=== PATIENT | female | born 1970 | race African-American/Black ===

== ENCOUNTER → 2017-01-06 | Outpatient (CLI) | payer MEDICARE, MEDICAID | END | disposition home or self-care (01) | LOC: MAMMO 08:39 | PROVIDERS: ATTEND Specialist | DX: Z12.31 Encounter for screening mammogram for malignant neoplasm of breast (principal) | CPT/HCPCS: G0202 ==

== ENCOUNTER → 2018-02-13 | Outpatient (CLI) | payer MEDICARE, MEDICAID | END | disposition home or self-care (01) | LOC: MAMMO 08:51 | PROVIDERS: ATTEND Specialist | DX: Z12.31 Encounter for screening mammogram for malignant neoplasm of breast (principal); R92.1 Mammographic calcification found on diagnostic imaging of breast | CPT/HCPCS: 77067 ==

== ENCOUNTER → 2019-02-20 | Outpatient (CLI) | payer MEDICARE, MEDICAID | END | disposition home or self-care (01) | LOC: MAMMO 09:03 | PROVIDERS: ATTEND Specialist | DX: Z12.31 Encounter for screening mammogram for malignant neoplasm of breast (principal) | CPT/HCPCS: 77067 ==

== ENCOUNTER 2021-04-14 17:10 | Emergency (ER) | payer MEDICARE, MEDICAID ==
[~2021-04-14] VITALS: Ht 160 cm; Wt 75.0 kg
[2021-04-14 17:54] VITALS: BP 120/79
== END 2021-04-14 21:58 | disposition left against medical advice (07) ==
LOC: ER 17:10
DX: Z53.21 Procedure and treatment not carried out due to patient leaving prior to being seen by health care provider (principal); R56.9 Unspecified convulsions; F79 Unspecified intellectual disabilities

== ENCOUNTER 2021-06-21 19:33 | Inpatient (IN) | payer MEDICARE, MEDICAID ==
[~2021-06-21] VITALS: Ht 162.6 cm; Wt 66.2 kg
[2021-06-21] MEDS ORDERED: SODIUM CHLORIDE 0.9% 1,000 ML IV ONE (22:45)
[2021-06-22 01:18] LABS: BASOPHILS % 0.2 % (0.0-2.0); EOSINOPHILS % 0.5 % (0.0-5.0); LYMPHOCYTES % 40.4 % (20.0-50.0); MEAN CORPUSCULAR HEMOGLOBIN 27.4 pg (28.0-32.0); MEAN CORPUSCULAR VOLUME 84.4 fL (81.0-99.0); MEAN PLATELET VOLUME 7.7 fl (7.4-10.4); MONOCYTES % 7.5 % (2.0-8.0); NEUTROPHILS % 51.4 % (40.0-76.0); PLATELET 195 x1000/uL (130-400); RED BLOOD CELL COUNT 4.74 mill/uL (4.2-5.4); RED CELL DISTRIBUTION WIDTH 13.6 % (11.6-14.6)
[2021-06-22 01:30] LABS: CHLORIDE 105 mEq/L (98-107)
[2021-06-22 01:41] LABS: PHENOBARBITAL 10.5 ug/mL (15.0-40.0)
[2021-06-22 01:52] LABS: VALPROIC ACID < 3.0 ug/mL (50-100)
[2021-06-22 02:21] LABS: CLARITY URINE CLOUDY (CLEAR); COLOR URINE YELLOW (YELLOW); KETONES URINE TRACE (NEGATIVE); LEUKOCYTE ESTERASE URINE 2+ (NEGATIVE); NITRITE URINE POSITIVE (NEGATIVE); OCCULT BLOOD URINE NEGATIVE (NEGATIVE); PROTEIN URINE 2+ (NEGATIVE); SPECIFIC GRAVITY URINE 1.022 (1.005-1.030); UROBILINOGEN URINE 0.2 E.U./dL (0.2-1.0)
[2021-06-22] MEDS ORDERED: CEFTRIAXONE 1 G PREMIX 50 ML IV NR (02:30)
[2021-06-22] MEDS ORDERED: ACETAMINOPHEN 650MG SUPP PR PRN (02:45)
[2021-06-22] MEDS ORDERED: LEVETIRACETAM 1000MG PREMIX 100 ML IV NR (02:45)
[2021-06-22] MEDS ORDERED: CEFTRIAXONE 1 G PREMIX 50 ML IV SCH (03:00)
[2021-06-22] MEDS ORDERED: LEVETIRACETAM 500MG PREMIX 100 ML IV SCH (09:00)
[2021-06-22] MEDS ORDERED: LORAZEPAM 2MG/ML CPJ IV PRN (11:15)
[2021-06-22 14:00] VITALS: BP 127/82
[2021-06-22 14:34] VITALS: BP 127/82
[2021-06-22 16:00] VITALS: BP 121/88
[2021-06-22] MEDS ORDERED: SIMV10TA97 PO (16:03)
[2021-06-22] MEDS ORDERED: PHEN32.46 PO (16:03)
[2021-06-22] MEDS ORDERED: BENZ0.5T43 PO (16:03)
[2021-06-22] MEDS ORDERED: LAMO25TA3 PO (16:03)
[2021-06-22] MEDS ORDERED: CARB200C7 PO (16:03)
[2021-06-22] MEDS ORDERED: RISP1 PO (16:03)
[2021-06-22] MEDS ORDERED: LEVE1000 PO (16:03)
[2021-06-22] MEDS ORDERED: TIAG4TAB32 PO (16:03)
[2021-06-22] MEDS ORDERED: LACO200T2 PO (16:03)
[2021-06-22] MEDS ORDERED: ERGO50CA PO (16:03)
[2021-06-22] MEDS ORDERED: OMEP20CA14 PO (16:03)
[2021-06-22] MEDS ORDERED: DOCU-268 PO (16:03)
[2021-06-22] MEDS ORDERED: LAM1 PO (16:03)
[2021-06-22] MEDS ORDERED: FOLI-43 PO (16:03)
[2021-06-22 20:00] VITALS: BP 124/80
[2021-06-22] MEDS: BLOOD SUGAR DIAGNOSTIC STRIP TEST SCH (20:15)
[2021-06-22] MEDS: DEXT 5%/0.9% NACL 1,000 ML IV SCH (20:59)
[2021-06-22] MEDS: DEXTROSE 50% WATER 50ML SYRINGE IV PRN (21:19)
[2021-06-22] MEDS: VALPROATE SODIUM 500 MG in SODIUM CHLORIDE 0.9% 100 ML IV SCH (22:55)
[2021-06-23] VITALS: BP 114/82
[2021-06-23] MEDS: LEVETIRACETAM 500MG PREMIX 100 ML IV SCH ×3 (00:14→21:15)
[2021-06-23] MEDS: BLOOD SUGAR DIAGNOSTIC STRIP TEST SCH ×6 (00:15→20:15)
[2021-06-23] MEDS: DEXTROSE 50% WATER 50ML SYRINGE IV PRN (00:20)
[2021-06-23 04:00] VITALS: BP 120/77
[2021-06-23 07:13] LABS: CHLORIDE 112 mEq/L (98-107)
[2021-06-23 07:24] LABS: CARBAMAZEPINE 3.3 ug/mL (4-12)
[2021-06-23 07:35] LABS: BASOPHILS % 0.2 % (0.0-2.0); EOSINOPHILS % 0.7 % (0.0-5.0); HEMATOCRIT. 37.7 % (36.0-48.0); HEMOGLOBIN. 12.3 g/dL (12.0-16.0); LYMPHOCYTES % 46.7 % (20.0-50.0); MEAN CORPUSCULAR HEMOGLOBIN 27.1 pg (28.0-32.0); MEAN CORPUSCULAR VOLUME 83.3 fL (81.0-99.0); MEAN PLATELET VOLUME 8.4 fl (7.4-10.4); MONOCYTES % 8.1 % (2.0-8.0); NEUTROPHILS % 44.3 % (40.0-76.0); PLATELET 174 x1000/uL (130-400); RED BLOOD CELL COUNT 4.53 mill/uL (4.2-5.4); RED CELL DISTRIBUTION WIDTH 13.7 % (11.6-14.6)
[2021-06-23 08:00] VITALS: BP 112/78
[2021-06-23] MEDS: DEXT 5%/0.9% NACL 1,000 ML IV SCH ×2 (08:55→21:29)
[2021-06-23] MEDS: CEFTRIAXONE 1,000 MG in DEXTROSE 5% WATER 50 ML IV SCH (10:19)
[2021-06-23] MEDS: VALPROATE SODIUM 500 MG in SODIUM CHLORIDE 0.9% 100 ML IV SCH ×2 (10:19→21:15)
[2021-06-23 12:00] VITALS: BP 134/86
[2021-06-23 16:00] VITALS: BP 108/70
[2021-06-23 20:00] VITALS: BP 114/76
[2021-06-24] VITALS (8 sets, daily range): BP systolic 109–138; BP diastolic 68–82
[2021-06-24] MEDS: BLOOD SUGAR DIAGNOSTIC STRIP TEST SCH ×6 (01:00→20:15)
[2021-06-24] MEDS ORDERED: LEVETIRACETAM 500 MG in SODIUM CHLORIDE 0.9% 100 ML IV STA (01:01)
[2021-06-24] MEDS: LORAZEPAM 2MG/ML CPJ IV NR ×2 (01:09→02:08)
[2021-06-24] MEDS ORDERED: PHENOBARBITAL SODIUM 65MG/ML 1ML IV ONE (01:15)
[2021-06-24] MEDS ORDERED: LEVETIRACETAM 500MG PREMIX 100 ML IV NR (01:15)
[2021-06-24] MEDS ORDERED: PHENOBARBITAL SODIUM 65MG/ML 1ML IV SCH (01:15)
[2021-06-24] MEDS ORDERED: SODIUM CHLORIDE 0.9% IV NR (02:00)
[2021-06-24] MEDS ORDERED: PHENOBARBITAL IV NR (02:00)
[2021-06-24] MEDS: PHENYTOIN SODIUM 100MG/2ML VIAL IV SCH ×3 (06:32→21:48)
[2021-06-24] MEDS: CEFTRIAXONE 1,000 MG in DEXTROSE 5% WATER 50 ML IV SCH (06:32)
[2021-06-24] MEDS: VALPROATE SODIUM 500 MG in SODIUM CHLORIDE 0.9% 100 ML IV SCH ×2 (09:05→21:49)
[2021-06-24] MEDS: DEXT 5%/0.9% NACL 1,000 ML IV SCH (09:05)
[2021-06-24] MEDS: LEVETIRACETAM 1,000 MG in SODIUM CHLORIDE 0.9% 100 ML IV SCH ×2 (13:45→21:49)
[2021-06-24] MEDS: LORAZEPAM 2MG/ML CPJ IV PRN (21:48)
[2021-06-24] MEDS: DEXTROSE 50% WATER 50ML SYRINGE IV PRN (23:08)
[2021-06-25] VITALS: BP 117/78
[2021-06-25] MEDS: BLOOD SUGAR DIAGNOSTIC STRIP TEST SCH ×6 (00:15→20:52)
[2021-06-25] MEDS: LORAZEPAM 2MG/ML CPJ IV PRN (02:37)
[2021-06-25] MEDS: DEXT 5%/0.9% NACL 1,000 ML IV SCH ×2 (02:37→17:23)
[2021-06-25 04:00] VITALS: BP 117/76
[2021-06-25] MEDS: PHENYTOIN SODIUM 100MG/2ML VIAL IV SCH ×3 (07:06→22:38)
[2021-06-25 08:00] VITALS: BP 133/76
[2021-06-25] MEDS ORDERED: PHENOBARBITAL IV SCH (09:00)
[2021-06-25] MEDS ORDERED: SODIUM CHLORIDE 0.9% IV SCH (09:00)
[2021-06-25] MEDS: CEFTRIAXONE 1,000 MG in DEXTROSE 5% WATER 50 ML IV SCH (10:19)
[2021-06-25] MEDS: LEVETIRACETAM 1,250 MG in SODIUM CHLORIDE 0.9% 100 ML IV SCH ×2 (10:19→21:14)
[2021-06-25] MEDS: VALPROATE SODIUM 500 MG in SODIUM CHLORIDE 0.9% 100 ML IV SCH ×2 (10:25→20:54)
[2021-06-25 14:37] LABS: CHLORIDE 113 mEq/L (98-107)
[2021-06-25 15:08] LABS: BASOPHILS % 0.1 % (0.0-2.0); EOSINOPHILS % 0.2 % (0.0-5.0); HEMATOCRIT. 39.3 % (36.0-48.0); HEMOGLOBIN. 12.5 g/dL (12.0-16.0); LYMPHOCYTES % 23.6 % (20.0-50.0); MEAN CORPUSCULAR VOLUME 84.6 fL (81.0-99.0); MEAN PLATELET VOLUME 8.7 fl (7.4-10.4); MONOCYTES % 10.2 % (2.0-8.0); NEUTROPHILS % 65.9 % (40.0-76.0); PLATELET 161 x1000/uL (130-400); RED BLOOD CELL COUNT 4.65 mill/uL (4.2-5.4); RED CELL DISTRIBUTION WIDTH 13.6 % (11.6-14.6)
[2021-06-25 16:00] VITALS: BP 132/73
[2021-06-25] MEDS ORDERED: LAMOTRIGINE 100MG TABLET PO SCH (16:45)
[2021-06-25] MEDS: DEXTROSE 50% WATER 50ML SYRINGE IV PRN (17:24)
[2021-06-25 20:00] VITALS: BP 117/74
[2021-06-25] MEDS: LACOSAMIDE 100 MG TABLET PO SCH (20:54)
[2021-06-26] VITALS: BP 114/68
[2021-06-26 04:00] VITALS: BP 127/72
[2021-06-26] MEDS: BLOOD SUGAR DIAGNOSTIC STRIP TEST SCH ×6 (04:15→20:56)
[2021-06-26] MEDS: DEXT 5%/0.9% NACL 1,000 ML IV SCH ×2 (05:47→16:00)
[2021-06-26] MEDS: PHENYTOIN SODIUM 100MG/2ML VIAL IV SCH ×3 (05:47→20:55)
[2021-06-26] MEDS: CEFTRIAXONE 1,000 MG in DEXTROSE 5% WATER 50 ML IV SCH (06:03)
[2021-06-26 08:00] VITALS: BP 114/57
[2021-06-26] MEDS ORDERED: LAMOTRIGINE 25MG TABLET PO SCH (09:00)
[2021-06-26] MEDS: LEVETIRACETAM 1,250 MG in SODIUM CHLORIDE 0.9% 100 ML IV SCH ×2 (09:05→20:56)
[2021-06-26] MEDS: LACOSAMIDE 100 MG TABLET PO SCH ×2 (09:05→20:55)
[2021-06-26] MEDS: VALPROATE SODIUM 500 MG in SODIUM CHLORIDE 0.9% 100 ML IV SCH ×2 (09:06→20:56)
[2021-06-26] MEDS: LORAZEPAM 2MG/ML CPJ IV PRN (09:11)
[2021-06-26 12:00] VITALS: BP 113/53
[2021-06-26] MEDS: LAMOTRIGINE 100MG TABLET PO SCH ×2 (15:59→20:55)
[2021-06-26 16:00] VITALS: BP 104/74
[2021-06-26 20:00] VITALS: BP 116/80
[2021-06-27] VITALS: BP 118/73
[2021-06-27] MEDS: BLOOD SUGAR DIAGNOSTIC STRIP TEST SCH ×7 (01:13→23:50)
[2021-06-27 04:00] VITALS: BP 107/68
[2021-06-27] MEDS: PHENYTOIN SODIUM 100MG/2ML VIAL IV SCH ×3 (05:56→22:05)
[2021-06-27] MEDS: CEFTRIAXONE 1,000 MG in DEXTROSE 5% WATER 50 ML IV SCH (05:56)
[2021-06-27] MEDS: DEXT 5%/0.9% NACL 1,000 ML IV SCH ×2 (05:58→12:56)
[2021-06-27 08:00] VITALS: BP 115/67
[2021-06-27] MEDS: LACOSAMIDE 100 MG TABLET PO SCH ×2 (10:15→20:39)
[2021-06-27] MEDS: LAMOTRIGINE 25MG TABLET PO SCH (10:16)
[2021-06-27] MEDS: VALPROATE SODIUM 500 MG in SODIUM CHLORIDE 0.9% 100 ML IV SCH ×2 (10:16→20:40)
[2021-06-27] MEDS: LEVETIRACETAM 1,250 MG in SODIUM CHLORIDE 0.9% 100 ML IV SCH ×2 (10:16→22:05)
[2021-06-27 12:00] VITALS: BP 113/74
[2021-06-27 16:00] VITALS: BP 106/67
[2021-06-27 20:00] VITALS: BP 105/70
[2021-06-27] MEDS: LAMOTRIGINE 100MG TABLET PO SCH (20:40)
[2021-06-27] MEDS: DEXTROSE 50% WATER 50ML SYRINGE IV PRN (23:50)
[2021-06-28] VITALS: BP_SYST 110; BP_SYST 125; BP_DIAS 65; BP_DIAS 72
[2021-06-28] MEDS: DEXT 5%/0.9% NACL 1,000 ML IV SCH ×2 (01:10→13:45)
[2021-06-28 04:00] VITALS: BP 118/73
[2021-06-28] MEDS: BLOOD SUGAR DIAGNOSTIC STRIP TEST SCH ×6 (05:00→18:00)
[2021-06-28] MEDS: PHENYTOIN SODIUM 100MG/2ML VIAL IV SCH (06:18)
[2021-06-28 08:00] VITALS: BP 115/72
[2021-06-28] MEDS: LACOSAMIDE 100 MG TABLET PO SCH ×2 (10:49→20:39)
[2021-06-28] MEDS: LAMOTRIGINE 25MG TABLET PO SCH (10:51)
[2021-06-28] MEDS: LEVETIRACETAM 1,250 MG in SODIUM CHLORIDE 0.9% 100 ML IV SCH (10:51)
[2021-06-28 12:00] VITALS: BP 111/74
[2021-06-28] MEDS: PHENYTOIN SODIUM EXTENDED 100MG CAPSULE PO SCH ×2 (14:10→17:00)
[2021-06-28] MEDS: VALPROATE SODIUM 250MG/5ML UDC PO SCH ×2 (14:10→20:39)
[2021-06-28] MEDS ORDERED: KEPP500 PO (14:39)
[2021-06-28] MEDS ORDERED: LACO100T2 PO (14:39)
[2021-06-28] MEDS ORDERED: LAM1 PO (14:39)
[2021-06-28] MEDS ORDERED: PHEN100C4 PO (14:39)
[2021-06-28] MEDS ORDERED: VALP250S22 PO (14:39)
[2021-06-28] MEDS ORDERED: KEPP250 PO (14:39)
[2021-06-28 16:00] VITALS: BP 112/72
[2021-06-28 20:00] VITALS: BP_SYST 122; BP_SYST 124; BP_DIAS 77; BP_DIAS 78
[2021-06-28] MEDS: LEVETIRACETAM 500MG TABLET PO SCH (20:37)
[2021-06-28] MEDS: LEVETIRACETAM 250MG TABLET PO SCH (20:38)
[2021-06-28] MEDS: LAMOTRIGINE 100MG TABLET PO SCH (20:38)
[2021-06-29] VITALS: BP 124/77
[2021-06-29] MEDS: BLOOD SUGAR DIAGNOSTIC STRIP TEST SCH ×6 (00:48→20:15)
[2021-06-29] MEDS: DEXT 5%/0.9% NACL 1,000 ML IV SCH ×2 (02:15→13:53)
[2021-06-29 04:00] VITALS: BP 133/78
[2021-06-29] MEDS: VALPROATE SODIUM 250MG/5ML UDC PO SCH ×3 (05:47→20:55)
[2021-06-29] MEDS ORDERED: LORAZEPAM 2MG/ML CPJ IV PRN (07:20)
[2021-06-29 08:00] VITALS: BP 91/55
[2021-06-29] MEDS: PHENYTOIN SODIUM EXTENDED 100MG CAPSULE PO SCH ×2 (08:57→16:11)
[2021-06-29] MEDS: LEVETIRACETAM 500MG TABLET PO SCH ×2 (08:57→20:54)
[2021-06-29] MEDS: LAMOTRIGINE 100MG TABLET PO SCH ×2 (08:58→20:55)
[2021-06-29] MEDS: LEVETIRACETAM 250MG TABLET PO SCH ×2 (08:58→20:55)
[2021-06-29] MEDS: LACOSAMIDE 100 MG TABLET PO SCH ×2 (08:58→20:55)
[2021-06-29] MEDS ORDERED: VIMPAT 100 MG XX SCH (10:45)
[2021-06-29] MEDS ORDERED: LACOSAMIDE 100 MG TABLET PO SCH (11:30)
[2021-06-29 12:00] VITALS: BP 93/64
[2021-06-29 12:18] LABS: BASOPHILS % 0.6 % (0.0-2.0); EOSINOPHILS % 0.9 % (0.0-5.0); HEMATOCRIT. 37.2 % (36.0-48.0); HEMOGLOBIN. 12.2 g/dL (12.0-16.0); LYMPHOCYTES % 23.7 % (20.0-50.0); MEAN CORPUSCULAR HEMOGLOBIN 27.9 pg (28.0-32.0); MEAN CORPUSCULAR VOLUME 84.7 fL (81.0-99.0); MEAN PLATELET VOLUME 7.8 fl (7.4-10.4); MONOCYTES % 10.1 % (2.0-8.0); NEUTROPHILS % 64.7 % (40.0-76.0); PLATELET 198 x1000/uL (130-400); RED BLOOD CELL COUNT 4.39 mill/uL (4.2-5.4); RED CELL DISTRIBUTION WIDTH 13.7 % (11.6-14.6)
[2021-06-29 12:42] LABS: CHLORIDE 110 mEq/L (98-107)
[2021-06-29] MEDS ORDERED: POTASSIUM CHLORIDE INJ 40 MEQ in DEXT 5% WATER 250 ML IV ONE (15:00)
[2021-06-29 15:38] VITALS: BP 95/62
[2021-06-29] MEDS: KCL 20MEQ/100ML PREMIX 100 ML IV SCH ×2 (16:12→17:10)
[2021-06-29 20:00] VITALS: BP 95/59
[2021-06-30] MEDS: BLOOD SUGAR DIAGNOSTIC STRIP TEST SCH ×6 (00:15→20:15)
[2021-06-30] MEDS: DEXT 5%/0.9% NACL 1,000 ML IV SCH ×2 (03:15→16:53)
[2021-06-30 04:00] VITALS: BP 94/64
[2021-06-30] MEDS: VALPROATE SODIUM 250MG/5ML UDC PO SCH ×3 (06:32→20:37)
[2021-06-30] MEDS: LAMOTRIGINE 100MG TABLET PO SCH ×2 (09:07→20:37)
[2021-06-30] MEDS: PHENYTOIN SODIUM EXTENDED 100MG CAPSULE PO SCH ×2 (09:07→16:53)
[2021-06-30] MEDS: LEVETIRACETAM 250MG TABLET PO SCH ×2 (09:08→20:37)
[2021-06-30] MEDS: LACOSAMIDE 100 MG TABLET PO SCH ×2 (09:08→20:37)
[2021-06-30] MEDS: LEVETIRACETAM 500MG TABLET PO SCH ×2 (09:10→20:37)
[2021-06-30 16:00] VITALS: BP 137/80
[2021-06-30 20:00] VITALS: BP 122/89
[2021-07-01] MEDS: BLOOD SUGAR DIAGNOSTIC STRIP TEST SCH ×6 (01:03→21:10)
[2021-07-01 04:00] VITALS: BP 124/88
[2021-07-01] MEDS: VALPROATE SODIUM 250MG/5ML UDC PO SCH ×3 (04:41→20:53)
[2021-07-01] MEDS: DEXT 5%/0.9% NACL 1,000 ML IV SCH ×2 (04:41→16:45)
[2021-07-01 08:00] VITALS: BP 103/75
[2021-07-01 08:04] LABS: CHLORIDE 110 mEq/L (98-107)
[2021-07-01] MEDS: LEVETIRACETAM 250MG TABLET PO SCH ×2 (08:30→20:52)
[2021-07-01] MEDS: LEVETIRACETAM 500MG TABLET PO SCH ×2 (08:30→20:53)
[2021-07-01] MEDS: PHENYTOIN SODIUM EXTENDED 100MG CAPSULE PO SCH ×2 (08:30→18:44)
[2021-07-01] MEDS: LAMOTRIGINE 100MG TABLET PO SCH ×2 (08:30→20:53)
[2021-07-01] MEDS: LACOSAMIDE 100 MG TABLET PO SCH ×2 (08:31→20:53)
[2021-07-01] MEDS: LORAZEPAM 2MG/ML CPJ IV PRN (09:24)
[2021-07-01 12:00] VITALS: BP 105/70
[2021-07-01] MEDS ORDERED: LORAZEPAM 2MG/ML CPJ IM NR (12:15)
[2021-07-01 16:00] VITALS: BP 100/69
[2021-07-01 20:00] VITALS: BP 113/71
[2021-07-01] MEDS: DEXTROSE 50% WATER 50ML SYRINGE IV PRN (21:10)
[2021-07-02] VITALS: BP 101/66
[2021-07-02] MEDS: BLOOD SUGAR DIAGNOSTIC STRIP TEST SCH ×6 (00:19→23:33)
[2021-07-02 04:00] VITALS: BP 96/61
[2021-07-02] MEDS: DEXT 5%/0.9% NACL 1,000 ML IV SCH ×2 (05:39→21:24)
[2021-07-02] MEDS: VALPROATE SODIUM 250MG/5ML UDC PO SCH ×3 (05:39→21:23)
[2021-07-02 08:00] VITALS: BP 117/66
[2021-07-02] MEDS: PHENYTOIN SODIUM EXTENDED 100MG CAPSULE PO SCH ×2 (09:38→17:00)
[2021-07-02] MEDS: LEVETIRACETAM 500MG TABLET PO SCH ×2 (09:40→21:23)
[2021-07-02] MEDS: LAMOTRIGINE 100MG TABLET PO SCH ×2 (09:42→21:23)
[2021-07-02] MEDS: LACOSAMIDE 100 MG TABLET PO SCH ×2 (09:42→21:23)
[2021-07-02] MEDS: LEVETIRACETAM 250MG TABLET PO SCH ×2 (09:46→21:23)
[2021-07-02 12:00] VITALS: BP 115/64
[2021-07-02 16:00] VITALS: BP 116/68
[2021-07-02 20:00] VITALS: BP 95/65
[2021-07-03] VITALS: BP 108/76
[2021-07-03 04:00] VITALS: BP 109/67
[2021-07-03] MEDS: BLOOD SUGAR DIAGNOSTIC STRIP TEST SCH ×5 (04:05→20:15)
[2021-07-03] MEDS: DEXT 5%/0.9% NACL 1,000 ML IV SCH ×2 (05:30→16:44)
[2021-07-03] MEDS: VALPROATE SODIUM 250MG/5ML UDC PO SCH ×3 (05:30→21:59)
[2021-07-03 08:00] VITALS: BP 109/69
[2021-07-03] MEDS: LEVETIRACETAM 500MG TABLET PO SCH ×2 (09:10→22:01)
[2021-07-03] MEDS: PHENYTOIN SODIUM EXTENDED 100MG CAPSULE PO SCH ×2 (09:10→16:43)
[2021-07-03] MEDS: LEVETIRACETAM 250MG TABLET PO SCH ×2 (09:10→21:59)
[2021-07-03] MEDS: LAMOTRIGINE 100MG TABLET PO SCH ×2 (09:11→21:59)
[2021-07-03] MEDS: LACOSAMIDE 100 MG TABLET PO SCH ×2 (09:11→21:58)
[2021-07-03 12:00] VITALS: BP 106/68
[2021-07-03 16:00] VITALS: BP 112/67
[2021-07-03 20:00] VITALS: BP 108/63
[2021-07-04] VITALS (8 sets, daily range): BP systolic 93–124; BP diastolic 48–78
[2021-07-04] MEDS: BLOOD SUGAR DIAGNOSTIC STRIP TEST SCH ×6 (00:15→20:38)
[2021-07-04] MEDS: LORAZEPAM 2MG/ML CPJ IV PRN ×2 (04:38→10:50)
[2021-07-04] MEDS: DEXT 5%/0.9% NACL 1,000 ML IV SCH ×2 (05:10→20:37)
[2021-07-04] MEDS: VALPROATE SODIUM 250MG/5ML UDC PO SCH ×3 (05:54→21:49)
[2021-07-04] MEDS: PHENYTOIN SODIUM EXTENDED 100MG CAPSULE PO SCH ×2 (10:42→17:50)
[2021-07-04] MEDS: LEVETIRACETAM 500MG TABLET PO SCH ×2 (10:42→21:49)
[2021-07-04] MEDS: LEVETIRACETAM 250MG TABLET PO SCH ×2 (10:42→21:50)
[2021-07-04] MEDS: LAMOTRIGINE 100MG TABLET PO SCH ×2 (10:43→21:49)
[2021-07-04] MEDS: LACOSAMIDE 100 MG TABLET PO SCH ×2 (10:46→21:50)
[2021-07-05] VITALS: BP 102/69
[2021-07-05] MEDS: BLOOD SUGAR DIAGNOSTIC STRIP TEST SCH ×5 (03:59→20:15)
[2021-07-05 04:00] VITALS: BP 126/80
[2021-07-05] MEDS: VALPROATE SODIUM 250MG/5ML UDC PO SCH ×3 (05:49→22:20)
[2021-07-05 08:00] VITALS: BP 110/70
[2021-07-05] MEDS: LEVETIRACETAM 250MG TABLET PO SCH ×2 (09:37→22:21)
[2021-07-05] MEDS: LACOSAMIDE 100 MG TABLET PO SCH ×2 (09:38→22:20)
[2021-07-05] MEDS: LEVETIRACETAM 500MG TABLET PO SCH ×2 (09:38→22:20)
[2021-07-05] MEDS: LAMOTRIGINE 100MG TABLET PO SCH ×2 (09:38→22:20)
[2021-07-05] MEDS: PHENYTOIN SODIUM EXTENDED 100MG CAPSULE PO SCH ×2 (09:38→17:54)
[2021-07-05] MEDS: DEXT 5%/0.9% NACL 1,000 ML IV SCH ×2 (09:40→22:22)
[2021-07-05 12:00] VITALS: BP 118/75
[2021-07-05 16:00] VITALS: BP 106/72
[2021-07-06] VITALS: BP 118/68
[2021-07-06] MEDS: BLOOD SUGAR DIAGNOSTIC STRIP TEST SCH ×6 (00:15→20:22)
[2021-07-06 04:00] VITALS: BP 122/64
[2021-07-06] MEDS: VALPROATE SODIUM 250MG/5ML UDC PO SCH ×3 (06:46→22:07)
[2021-07-06] MEDS: DEXT 5%/0.9% NACL 1,000 ML IV SCH (09:15)
[2021-07-06] MEDS: LEVETIRACETAM 500MG TABLET PO SCH ×2 (11:39→20:22)
[2021-07-06] MEDS: LEVETIRACETAM 250MG TABLET PO SCH ×2 (11:39→20:24)
[2021-07-06] MEDS: PHENYTOIN SODIUM EXTENDED 100MG CAPSULE PO SCH ×2 (11:39→16:46)
[2021-07-06] MEDS: LACOSAMIDE 100 MG TABLET PO SCH ×2 (11:40→20:22)
[2021-07-06] MEDS: LAMOTRIGINE 100MG TABLET PO SCH ×2 (11:40→20:23)
[2021-07-06 12:00] VITALS: BP 98/54
[2021-07-06 16:00] VITALS: BP 109/68
[2021-07-06 20:00] VITALS: BP 100/68
[2021-07-07] VITALS: BP 106/72
[2021-07-07] MEDS ORDERED: METOCLOPRAMIDE HCL 10MG/2ML VIAL IV SCH
[2021-07-07] MEDS: BLOOD SUGAR DIAGNOSTIC STRIP TEST SCH ×5 (00:50→16:15)
[2021-07-07 04:00] VITALS: BP 108/68
[2021-07-07] MEDS: VALPROATE SODIUM 250MG/5ML UDC PO SCH ×2 (06:16→13:17)
[2021-07-07 12:00] VITALS: BP 119/77
[2021-07-07 12:13] VITALS: BP 119/77
[2021-07-07 13:10] VITALS: BP 119/77
[2021-07-07] MEDS: LAMOTRIGINE 100MG TABLET PO SCH (13:18)
[2021-07-07] MEDS: LACOSAMIDE 100 MG TABLET PO SCH (13:18)
[2021-07-07] MEDS: LEVETIRACETAM 500MG TABLET PO SCH (13:18)
[2021-07-07] MEDS: LEVETIRACETAM 250MG TABLET PO SCH (13:19)
[2021-07-07] MEDS: PHENYTOIN SODIUM EXTENDED 100MG CAPSULE PO SCH ×2 (13:19→17:01)
[2021-07-07 16:00] VITALS: BP 99/66
== END 2021-07-07 18:30 | disposition home or self-care (01) | DRG 101 ==
LOC: ER 19:33 → 7EST 06-22 02:26 → ENRESERV 06-22 10:55 → 5WST 06-24 15:58
PROVIDERS: ADMIT Internal Medicine; ATTEND Internal Medicine
PROC: 05HY33Z Insertion of Infusion Device into Upper Vein, Percutaneous Approach (ICD-10-PCS; 2021-06-22)
PROC: B54MZZA Ultrasonography of Right Upper Extremity Veins, Guidance (ICD-10-PCS; 2021-06-22)
PROC: 4A10X4Z Monitoring of Central Nervous Electrical Activity, External Approach (ICD-10-PCS; principal; 2021-06-23)
DX: G40.909 Epilepsy, unspecified, not intractable, without status epilepticus (principal); N39.0 Urinary tract infection, site not specified; F72 Severe intellectual disabilities; I10 Essential (primary) hypertension; E78.00 Pure hypercholesterolemia, unspecified; F79 Unspecified intellectual disabilities; D64.9 Anemia, unspecified; K21.9 Gastro-esophageal reflux disease without esophagitis; M19.90 Unspecified osteoarthritis, unspecified site; Z20.822 Contact with and (suspected) exposure to COVID-19; H54.7 Unspecified visual loss
CPT/HCPCS: 36415; 71045; 76937; 80048; 80053; 80076; 80156; 80165; 80184; 80185; 80339; 81003; 82542; 82962; 83735; 85025; 87077; 87186; 87426; 87635; 92610; 93005; 93971; 95816; 97162; 99285; C1725; C1893; J0696; J1165; J1953; J2060; J2560; J3480; J3490; J7030; J7040; J7042; J7050; J7060

== ENCOUNTER 2021-11-15 07:18 | Emergency (ER) | payer MEDICARE, MEDICAID ==
[~2021-11-15] VITALS: Ht 162.6 cm; Wt 64.0 kg
[~2021-11-15 07:18] MED LIST: BENZ0.5T43 PO; DOCU-268 PO; ERGO50CA PO; FOLI-43 PO; KEPP250 PO; KEPP500 PO; LAM1 PO; OMEP20CA14 PO; PHEN100C4 PO; RISP1 PO; SIMV10TA97 PO; VALP250S22 PO
[2021-11-15] MEDS ORDERED: HALOPERIDOL LACTATE 5MG/ML VIAL IM ONE (09:00)
[2021-11-15 09:39] LABS: BASOPHILS % 0.2 % (0.0-2.0); EOSINOPHILS % 0.7 % (0.0-5.0); HEMATOCRIT. 39.5 % (36.0-48.0); HEMOGLOBIN. 12.6 g/dL (12.0-16.0); LYMPHOCYTES % 26.2 % (20.0-50.0); MEAN CORPUSCULAR HEMOGLOBIN 27.4 pg (28.0-32.0); MEAN CORPUSCULAR VOLUME 85.5 fL (81.0-99.0); MEAN PLATELET VOLUME 8.4 fl (7.4-10.4); MONOCYTES % 4.9 % (2.0-8.0); PLATELET 154 x1000/uL (130-400); RED BLOOD CELL COUNT 4.62 mill/uL (4.2-5.4); RED CELL DISTRIBUTION WIDTH 15.7 % (11.6-14.6)
[2021-11-15 09:48] LABS: CHLORIDE 110 mEq/L (98-107)
[2021-11-15 09:56] LABS: ETHANOL BLOOD < 10 mg/dL
[2021-11-15 10:15] LABS: VALPROIC ACID < 3.0 ug/mL (50-100)
[2021-11-15 11:04] VITALS: BP 124/90
[2021-11-15 11:17] LABS: CLARITY URINE CLEAR (CLEAR); COLOR URINE YELLOW (YELLOW); KETONES URINE NEGATIVE (NEGATIVE); LEUKOCYTE ESTERASE URINE NEGATIVE (NEGATIVE); NITRITE URINE NEGATIVE (NEGATIVE); OCCULT BLOOD URINE NEGATIVE (NEGATIVE); PROTEIN URINE 1+ (NEGATIVE); SPECIFIC GRAVITY URINE 1.012 (1.005-1.030); UROBILINOGEN URINE 0.2 E.U./dL (0.2-1.0)
[2021-11-15 11:38] LABS: *AMPHETAMINES SCREEN URINE NEGATIVE (NEGATIVE); *BARBITURATES SCREEN URINE PRESUMTIVE POSITIVE (NEGATIVE); *BENZODIAZEPINES SCREEN URINE PRESUMTIVE POSITIVE (NEGATIVE); *COCAINE SCREEN URINE NEGATIVE (NEGATIVE); CANNABINOID URINE SCREEN NEGATIVE (NEGATIVE); METHADONE URINE SCREEN NEGATIVE (NEGATIVE); OPIATES URINE SCREEN NEGATIVE (NEGATIVE); PHENCYCLIDINE URINE SCREEN NEGATIVE (NEGATIVE)
== END 2021-11-15 14:05 | disposition home or self-care (01) ==
LOC: ER 07:28
DX: G40.909 Epilepsy, unspecified, not intractable, without status epilepticus (principal); K21.9 Gastro-esophageal reflux disease without esophagitis; E78.00 Pure hypercholesterolemia, unspecified; I10 Essential (primary) hypertension; M19.90 Unspecified osteoarthritis, unspecified site
CPT/HCPCS: 36415; 80053; 80156; 80165; 80185; 80305; 80320; 81003; 85025; 99283; G0480

== ENCOUNTER 2022-03-03 18:59 | Inpatient (IN) | payer MEDICARE, MEDICAID ==
[~2022-03-03] VITALS: Ht 165.1 cm; Wt 79.8 kg
[2022-03-03] MEDS ORDERED: LEVETIRACETAM 1000MG PREMIX 100 ML IV ONE (19:45)
[2022-03-03 20:58] LABS: BASOPHILS % 0.2 % (0.0-2.0); HEMATOCRIT. 42.1 % (36.0-48.0); HEMOGLOBIN. 13.4 g/dL (12.0-16.0); LYMPHOCYTES % 42.7 % (20.0-50.0); MEAN CORPUSCULAR HEMOGLOBIN 27.7 pg (28.0-32.0); MEAN CORPUSCULAR VOLUME 87.3 fL (81.0-99.0); MEAN PLATELET VOLUME 8.9 fl (7.4-10.4); MONOCYTES % 7.5 % (2.0-8.0); NEUTROPHILS % 49.6 % (40.0-76.0); PLATELET 196 x1000/uL (130-400); RED BLOOD CELL COUNT 4.82 mill/uL (4.2-5.4); RED CELL DISTRIBUTION WIDTH 14.8 % (11.6-14.6)
[2022-03-03 21:01] LABS: CHLORIDE 108 mEq/L (98-107)
[2022-03-03] MEDS ORDERED: ONDANSETRON HCL 4MG/2ML INJ IV PRN (22:45)
[2022-03-03] MEDS ORDERED: MAGNESIUM/ALUMINUM HYDROXIDE/SIMETHICONE 30ML UDC PO PRN (22:45)
[2022-03-03] MEDS ORDERED: NITROGLYCERIN 0.4MG TABLET SL SL PRN (22:45)
[2022-03-03] MEDS ORDERED: ACETAMINOPHEN 325MG TABLET PO PRN ×2 (22:45)
[2022-03-03] MEDS ORDERED: GUAIFENESIN 200MG/10ML SUGAR FREE UDC PO PRN (22:45)
[2022-03-03] MEDS ORDERED: KETOROLAC 15MG/ML VIAL IV PRN (22:45)
[2022-03-03] MEDS ORDERED: CLONIDINE 0.1MG TABLET PO PRN (22:45)
[2022-03-03] MEDS ORDERED: NA PHOS,M-B/NA PHOS,DI-BA ENEMA 118ML PR PRN (22:45)
[2022-03-03] MEDS ORDERED: IPRATROPIUM/ALBUTEROL 0.5-3(2.5)MG/3ML NEB NEB PRN (22:45)
[2022-03-03] MEDS ORDERED: DOCUSATE SODIUM 100MG CAPSULE PO PRN (22:45)
[2022-03-03] MEDS ORDERED: DIAZEPAM 5 MG/ML 2ML CPJ IV PRN (22:45)
[2022-03-03] MEDS ORDERED: ZOLPIDEM TARTRATE 5MG TABLET PO PRN (22:45)
[2022-03-04 02:08] LABS: VITAMIN B12 SERUM 938 pg/mL (211-911)
[2022-03-04 02:17] LABS: FOLIC ACID (FOLATE) SERUM > 20.00 ng/mL (>5.38)
[2022-03-04 03:24] VITALS: BP 127/85
[2022-03-04 04:00] VITALS: BP 120/70
[2022-03-04] MEDS: VALPROIC ACID 250MG CAPSULE PO SCH ×3 (05:43→21:29)
[2022-03-04 08:00] VITALS: BP 128/82
[2022-03-04] MEDS ORDERED: LEVETIRACETAM 500MG PREMIX 100 ML IV SCH (09:00)
[2022-03-04] MEDS: ASPIRIN 325MG EC TABLET PO SCH (09:00)
[2022-03-04] MEDS: ENOXAPARIN 40MG/0.4ML SYR SUBCUT SCH (10:51)
[2022-03-04] MEDS: PHENYTOIN SODIUM 100MG/2ML VIAL IV SCH ×3 (10:51→18:20)
[2022-03-04] MEDS: FAMOTIDINE 20MG TABLET PO SCH ×2 (10:52→21:29)
[2022-03-04] MEDS: LAMOTRIGINE 100MG TABLET PO SCH ×2 (10:52→21:29)
[2022-03-04 11:18] LABS: BASOPHILS % 0.2 % (0.0-2.0); HEMATOCRIT. 37.7 % (36.0-48.0); HEMOGLOBIN. 12.2 g/dL (12.0-16.0); LYMPHOCYTES % 39.9 % (20.0-50.0); MEAN CORPUSCULAR HEMOGLOBIN 27.9 pg (28.0-32.0); MEAN CORPUSCULAR VOLUME 86.3 fL (81.0-99.0); MEAN PLATELET VOLUME 8.8 fl (7.4-10.4); NEUTROPHILS % 53.9 % (40.0-76.0); PLATELET 180 x1000/uL (130-400); RED BLOOD CELL COUNT 4.37 mill/uL (4.2-5.4); RED CELL DISTRIBUTION WIDTH 14.4 % (11.6-14.6)
[2022-03-04 11:20] LABS: CHLORIDE 112 mEq/L (98-107)
[2022-03-04 11:27] LABS: CREATINE KINASE 105 IU/L (26-192); PHOSPHORUS 3.4 mg/dL (2.5-4.9)
[2022-03-04 12:00] VITALS: BP 130/78
[2022-03-04] MEDS: LEVETIRACETAM 500MG PREMIX 100 ML IV SCH ×2 (13:35→21:29)
[2022-03-04 16:00] VITALS: BP 122/76
[2022-03-04 20:00] VITALS: BP 104/72
[2022-03-05] VITALS: BP 124/85
[2022-03-05] MEDS: PHENYTOIN SODIUM 100MG/2ML VIAL IV SCH ×3 (01:17→17:45)
[2022-03-05 04:00] VITALS: BP 120/87
[2022-03-05] MEDS: VALPROIC ACID 250MG CAPSULE PO SCH ×3 (05:17→21:44)
[2022-03-05 08:00] VITALS: BP 113/70
[2022-03-05] MEDS: FAMOTIDINE 20MG TABLET PO SCH ×2 (08:27→21:44)
[2022-03-05] MEDS: LEVETIRACETAM 500MG PREMIX 100 ML IV SCH ×2 (08:27→21:46)
[2022-03-05] MEDS: ENOXAPARIN 40MG/0.4ML SYR SUBCUT SCH (08:27)
[2022-03-05] MEDS: LAMOTRIGINE 100MG TABLET PO SCH ×2 (08:27→21:44)
[2022-03-05] MEDS: ASPIRIN 325MG EC TABLET PO SCH (08:27)
[2022-03-05 12:00] VITALS: BP 109/65
[2022-03-05 15:37] VITALS: BP 98/66
[2022-03-05 17:18] LABS: CHLORIDE 110 mEq/L (98-107)
[2022-03-05 18:14] LABS: BASOPHILS % 0.1 % (0.0-2.0); HEMATOCRIT. 37.3 % (36.0-48.0); HEMOGLOBIN. 12.4 g/dL (12.0-16.0); LYMPHOCYTES % 49.3 % (20.0-50.0); MEAN CORPUSCULAR HEMOGLOBIN 28.1 pg (28.0-32.0); MEAN CORPUSCULAR VOLUME 84.6 fL (81.0-99.0); MEAN PLATELET VOLUME 9.3 fl (7.4-10.4); NEUTROPHILS % 41.6 % (40.0-76.0); PLATELET 183 x1000/uL (130-400); RED BLOOD CELL COUNT 4.41 mill/uL (4.2-5.4); RED CELL DISTRIBUTION WIDTH 14.4 % (11.6-14.6)
[2022-03-05 20:00] VITALS: BP 98/69
[2022-03-06] VITALS: BP 103/73
[2022-03-06] MEDS: PHENYTOIN SODIUM 100MG/2ML VIAL IV SCH (02:00)
[2022-03-06] MEDS: VALPROIC ACID 250MG CAPSULE PO SCH ×3 (05:35→20:43)
[2022-03-06 07:56] VITALS: BP 99/62
[2022-03-06] MEDS: ASPIRIN 325MG EC TABLET PO SCH (08:52)
[2022-03-06] MEDS: LAMOTRIGINE 100MG TABLET PO SCH ×2 (08:52→20:41)
[2022-03-06] MEDS: FAMOTIDINE 20MG TABLET PO SCH ×2 (08:52→20:42)
[2022-03-06] MEDS: LEVETIRACETAM 500MG PREMIX 100 ML IV SCH (08:52)
[2022-03-06] MEDS: ENOXAPARIN 40MG/0.4ML SYR SUBCUT SCH (08:53)
[2022-03-06] MEDS ORDERED: PHENYTOIN SODIUM EXTENDED 100MG CAPSULE PO SCH (10:00)
[2022-03-06 12:00] VITALS: BP 105/68
[2022-03-06 16:02] VITALS: BP 105/70
[2022-03-06] MEDS: PHENYTOIN SODIUM EXTENDED 100MG CAPSULE PO SCH (16:29)
[2022-03-06 20:00] VITALS: BP 138/88
[2022-03-06] MEDS: LEVETIRACETAM 500MG TABLET PO SCH (20:41)
[2022-03-07] VITALS (7 sets, daily range): BP systolic 101–121; BP diastolic 64–92
[2022-03-07] MEDS: VALPROIC ACID 250MG CAPSULE PO SCH ×2 (06:22→13:22)
[2022-03-07] MEDS: LEVETIRACETAM 500MG TABLET PO SCH (09:03)
[2022-03-07] MEDS: FAMOTIDINE 20MG TABLET PO SCH ×2 (09:03→21:31)
[2022-03-07] MEDS: PHENYTOIN SODIUM EXTENDED 100MG CAPSULE PO SCH ×3 (09:03→17:02)
[2022-03-07] MEDS: LAMOTRIGINE 100MG TABLET PO SCH ×2 (09:03→21:31)
[2022-03-07] MEDS: ASPIRIN 325MG EC TABLET PO SCH (09:03)
[2022-03-07] MEDS: ENOXAPARIN 40MG/0.4ML SYR SUBCUT SCH (09:04)
[2022-03-07] MEDS ORDERED: ZONISAMIDE 100MG CAPSULE PO SCH (21:15)
[2022-03-07] MEDS ORDERED: NON FORMULARY PATIENT HOME MED XX SCH (21:15)
[2022-03-08] MEDS ORDERED: CARBAMAZEPINE 100MG TABLET CHEW PO SCH (07:40)
[2022-03-08] MEDS ORDERED: LEVETIRACETAM 500MG TABLET PO SCH (09:00)
[2022-03-08] MEDS ORDERED: LACOSAMIDE 100 MG TABLET PO SCH (09:00)
== END 2022-03-07 23:33 | DRG 100 ==
LOC: ER 18:59 → MICUSO 22:36 → SUPCPDRO 22:45 → 8WST 03-04 01:38
PROVIDERS: ADMIT Internal Medicine; ATTEND Internal Medicine
DX: G40.909 Epilepsy, unspecified, not intractable, without status epilepticus (principal); G82.50 Quadriplegia, unspecified; G92.8 Other toxic encephalopathy; E78.00 Pure hypercholesterolemia, unspecified; D63.8 Anemia in other chronic diseases classified elsewhere; I10 Essential (primary) hypertension; K21.9 Gastro-esophageal reflux disease without esophagitis; M19.90 Unspecified osteoarthritis, unspecified site; F79 Unspecified intellectual disabilities; R26.2 Difficulty in walking, not elsewhere classified; R53.81 Other malaise; Z91.19 Patient's noncompliance with other medical treatment and regimen; Z79.899 Other long term (current) drug therapy
CPT/HCPCS: 36415; 71045; 80048; 80053; 80061; 80185; 82550; 82607; 82746; 82962; 83036; 83540; 83550; 83735; 84100; 84443; 85025; 92523; 92610; 93970; 97116; 97162; 97166; 97530; 97535; 99291; J1165; J1650; J1953

== ENCOUNTER 2022-03-29 05:35 | Emergency (ER) | payer MEDICARE, MEDICAID ==
[~2022-03-29] VITALS: Ht 172.7 cm; Wt 82.0 kg
[2022-03-29] MEDS ORDERED: LEVETIRACETAM 500MG PREMIX 100 ML IV ONE (06:30)
[2022-03-29 14:22] LABS: CLARITY URINE CLEAR (CLEAR); COLOR URINE YELLOW (YELLOW); KETONES URINE NEGATIVE (NEGATIVE); LEUKOCYTE ESTERASE URINE NEGATIVE (NEGATIVE); NITRITE URINE NEGATIVE (NEGATIVE); OCCULT BLOOD URINE NEGATIVE (NEGATIVE); PROTEIN URINE NEGATIVE (NEGATIVE); SPECIFIC GRAVITY URINE 1.003 (1.005-1.030); UROBILINOGEN URINE 0.2 E.U./dL (0.2-1.0)
[2022-03-29 17:57] VITALS: BP 125/86
== END 2022-03-29 18:14 | disposition home or self-care (01) ==
LOC: ER 05:54
DX: R56.9 Unspecified convulsions (principal); I10 Essential (primary) hypertension; E78.00 Pure hypercholesterolemia, unspecified; Z91.14 Patient's other noncompliance with medication regimen; Z20.822 Contact with and (suspected) exposure to COVID-19; Z79.899 Other long term (current) drug therapy; Z98.890 Other specified postprocedural states
CPT/HCPCS: 71045; 81003; 87426; 99285; C9803; J1953

== ENCOUNTER 2022-04-21 06:16 | Inpatient (IN) | payer MEDICARE, MEDICAID ==
[~2022-04-21] VITALS: Ht 160 cm; Wt 91.6 kg
[2022-04-21 07:09] LABS: BASOPHILS % 0.2 % (0.0-2.0); HEMATOCRIT. 36.3 % (36.0-48.0); LYMPHOCYTES % 49.1 % (20.0-50.0); MEAN CORPUSCULAR HEMOGLOBIN 27.6 pg (28.0-32.0); MEAN CORPUSCULAR VOLUME 83.5 fL (81.0-99.0); MONOCYTES % 5.9 % (2.0-8.0); NEUTROPHILS % 44.8 % (40.0-76.0); PLATELET 150 x1000/uL (130-400); RED BLOOD CELL COUNT 4.35 mill/uL (4.2-5.4); RED CELL DISTRIBUTION WIDTH 14.2 % (11.6-14.6)
[2022-04-21] MEDS ORDERED: LEVETIRACETAM 1000MG PREMIX 100 ML IV ONE (07:30)
[2022-04-21 07:34] LABS: CHLORIDE 107 mEq/L (98-107)
[2022-04-21 07:42] LABS: ETHANOL BLOOD < 10 mg/dL
[2022-04-21] MEDS ORDERED: ACETAMINOPHEN 325MG TABLET PO PRN ×2 (09:45)
[2022-04-21] MEDS ORDERED: ZOLPIDEM TARTRATE 5MG TABLET PO PRN (09:45)
[2022-04-21] MEDS ORDERED: NITROGLYCERIN 0.4MG TABLET SL SL PRN (09:45)
[2022-04-21] MEDS ORDERED: GUAIFENESIN 200MG/10ML SUGAR FREE UDC PO PRN (09:45)
[2022-04-21] MEDS ORDERED: IPRATROPIUM/ALBUTEROL 0.5-3(2.5)MG/3ML NEB NEB PRN (09:45)
[2022-04-21] MEDS ORDERED: MAGNESIUM/ALUMINUM HYDROXIDE/SIMETHICONE 30ML UDC PO PRN (09:45)
[2022-04-21] MEDS ORDERED: CLONIDINE 0.1MG TABLET PO PRN (09:45)
[2022-04-21 10:31] LABS: T4 FREE 1.02 ng/dL (0.76-1.46)
[2022-04-21 10:44] LABS: VITAMIN B12 SERUM 877 pg/mL (211-911)
[2022-04-21] MEDS ORDERED: PHENYTOIN SODIUM 1,000 MG in SODIUM CHLORIDE 0.9% 100 ML IV NR (11:00)
[2022-04-21] MEDS: PHENYTOIN SODIUM 100MG/2ML VIAL IV SCH ×2 (11:00→21:20)
[2022-04-21] MEDS: ENOXAPARIN 40MG/0.4ML SYR SUBCUT SCH (11:22)
[2022-04-21 16:00] VITALS: BP 121/44
[2022-04-21] MEDS: DIVALPROEX SODIUM 250MG DR TABLET PO SCH ×2 (16:38→23:38)
[2022-04-21 18:16] VITALS: BP 100/71
[2022-04-21 20:33] VITALS: BP 113/72
[2022-04-21] MEDS: LEVETIRACETAM 500MG TABLET PO SCH (21:19)
[2022-04-21] MEDS: LAMOTRIGINE 100MG TABLET PO SCH (21:20)
[2022-04-21] MEDS: FAMOTIDINE 20MG TABLET PO SCH (21:20)
[2022-04-22] VITALS (37 sets, daily range): BP systolic 103–163; BP diastolic 63–98
[2022-04-22] MEDS ORDERED: DEXTROSE 50% WATER 50ML SYRINGE IV ONE ×2 (02:11→05:59)
[2022-04-22] MEDS ORDERED: DEXTROSE 50% WATER 50ML SYRINGE IV NR (03:00)
[2022-04-22] MEDS: LORAZEPAM 2MG/ML CPJ IV PRN ×3 (03:03→22:48)
[2022-04-22] MEDS: DIVALPROEX SODIUM 250MG DR TABLET PO SCH ×3 (06:00→21:51)
[2022-04-22] MEDS: PHENYTOIN SODIUM 100MG/2ML VIAL IV SCH ×3 (06:08→21:51)
[2022-04-22] MEDS: DEXTROSE 50% WATER 50ML SYRINGE IV PRN (06:12)
[2022-04-22] MEDS ORDERED: LORAZEPAM 2MG/ML CPJ IV PRN (06:30)
[2022-04-22 07:48] LABS: BASOPHILS % 0.1 % (0.0-2.0); HEMATOCRIT. 41.4 % (36.0-48.0); HEMOGLOBIN. 13.4 g/dL (12.0-16.0); MEAN CORPUSCULAR HEMOGLOBIN 28.1 pg (28.0-32.0); MEAN CORPUSCULAR VOLUME 86.6 fL (81.0-99.0); MONOCYTES % 4.3 % (2.0-8.0); NEUTROPHILS % 76.6 % (40.0-76.0); RED BLOOD CELL COUNT 4.78 mill/uL (4.2-5.4); RED CELL DISTRIBUTION WIDTH 14.5 % (11.6-14.6)
[2022-04-22 08:09] LABS: CHLORIDE 108 mEq/L (98-107)
[2022-04-22 08:25] LABS: CREATINE KINASE 436 IU/L (26-192)
[2022-04-22] MEDS: ASPIRIN 325MG EC TABLET PO SCH (09:00)
[2022-04-22] MEDS: LAMOTRIGINE 100MG TABLET PO SCH ×2 (09:00→20:57)
[2022-04-22] MEDS: LEVETIRACETAM 500MG TABLET PO SCH (09:00)
[2022-04-22] MEDS: FAMOTIDINE 20MG TABLET PO SCH ×2 (09:38→20:57)
[2022-04-22] MEDS: DEXT 5%/0.9% NACL 1,000 ML IV SCH ×2 (10:45→20:59)
[2022-04-22] MEDS: ENOXAPARIN 40MG/0.4ML SYR SUBCUT SCH (11:00)
[2022-04-22] MEDS ORDERED: LORAZEPAM 2MG/ML CPJ IV NR (11:30)
[2022-04-22] MEDS: LEVETIRACETAM 1,500 MG in SODIUM CHLORIDE 0.9% 100 ML IV SCH ×2 (11:31→20:58)
[2022-04-22] MEDS ORDERED: PHENOBARBITAL SODIUM 65MG/ML 1ML IV NR (11:43)
[2022-04-22] MEDS ORDERED: PROPOFOL 10MG/ML 100ML 100 ML IV PRN (12:15)
[2022-04-22 12:30] LABS: BG BASE EXCESS -0.7 mmol/L (-2.0-2.0); BG CARBOXYHEMOGLOBIN 0.3 % (0.5-1.5); BG DEOXYHEMOGLOBIN 0.6 % (0.0-5.0); BG HCO3 ACT 24.5 mmol/L (22.0-26.0); BG METHEMOGLOBIN 0.4 % (0.0-1.5); BG OXYGEN SATURATION 99.4 % (92.0-98.5); BG OXYHEMOGLOBIN 98.7 % (94.0-97.0); BG PCO2 42.2 mmHg (35.0-45.0); BG PH 7.381 (7.350-7.450); BG PO2 318.4 mmHg (75.0-100.0); BG SAMPLE SITE RIGHT BRACHIAL; BG TOTAL HEMOGLOBIN 12.6 g/dL (12.0-18.0); BG VENT MODE VENT - AC
[2022-04-22] MEDS ORDERED: NOREPINEPHRINE 8 MG in DEXT 5% WATER 242 ML IV PRN ×2 (13:00→14:00)
[2022-04-22] MEDS ORDERED: SODIUM CHLORIDE 0.9% 1,000 ML IV ONE (13:15)
[2022-04-22] MEDS: PIPERACILLIN/TAZOBACTAM 3.375 G in DEXTROSE 5% WATER 50 ML IV SCH ×2 (14:48→21:52)
[2022-04-22] MEDS: MIDAZOLAM HCL 100 MG in SODIUM CHLORIDE 0.9% 80 ML IV PRN (15:06)
[2022-04-22] MEDS ORDERED: DEXTROSE 50% WATER 50ML SYRINGE IV PRN (17:30)
[2022-04-22] MEDS: BLOOD SUGAR DIAGNOSTIC STRIP TEST SCH ×2 (17:32→20:59)
[2022-04-22] MEDS: ONDANSETRON HCL 4MG/2ML INJ IV PRN (22:48)
[2022-04-23] VITALS (82 sets, daily range): BP systolic 87–120; BP diastolic 44–86
[2022-04-23] MEDS: LORAZEPAM 2MG/ML CPJ IV PRN ×3 (02:45→14:33)
[2022-04-23] MEDS: ONDANSETRON HCL 4MG/2ML INJ IV PRN (02:55)
[2022-04-23] MEDS: PHENYTOIN SODIUM 100MG/2ML VIAL IV SCH ×2 (05:46→14:33)
[2022-04-23] MEDS: DIVALPROEX SODIUM 250MG DR TABLET PO SCH ×2 (05:46→14:33)
[2022-04-23] MEDS: PIPERACILLIN/TAZOBACTAM 3.375 G in DEXTROSE 5% WATER 50 ML IV SCH ×3 (05:58→23:37)
[2022-04-23] MEDS: DEXT 5%/0.9% NACL 1,000 ML IV SCH ×2 (06:20→16:45)
[2022-04-23 06:38] LABS: HEMATOCRIT. 31.8 % (36.0-48.0); HEMOGLOBIN. 10.6 g/dL (12.0-16.0); LYMPHOCYTES % 22.6 % (20.0-50.0); MEAN CORPUSCULAR HEMOGLOBIN 28.2 pg (28.0-32.0); MEAN CORPUSCULAR VOLUME 84.1 fL (81.0-99.0); MEAN PLATELET VOLUME 8.7 fl (7.4-10.4); MONOCYTES % 8.2 % (2.0-8.0); NEUTROPHILS % 69.2 % (40.0-76.0); PLATELET 115 x1000/uL (130-400); RED BLOOD CELL COUNT 3.77 mill/uL (4.2-5.4); RED CELL DISTRIBUTION WIDTH 14.4 % (11.6-14.6)
[2022-04-23 06:53] LABS: CHLORIDE 109 mEq/L (98-107)
[2022-04-23 07:08] LABS: PHOSPHORUS 2.8 mg/dL (2.5-4.9)
[2022-04-23] MEDS: BLOOD SUGAR DIAGNOSTIC STRIP TEST SCH ×4 (07:33→21:16)
[2022-04-23] MEDS: MAGNESIUM 2 G PREMIX 50 ML IV SCH ×2 (08:37→18:47)
[2022-04-23] MEDS: LAMOTRIGINE 100MG TABLET PO SCH ×2 (08:38→21:12)
[2022-04-23] MEDS: ASPIRIN 325MG EC TABLET PO SCH (08:38)
[2022-04-23] MEDS: LEVETIRACETAM 1,500 MG in SODIUM CHLORIDE 0.9% 100 ML IV SCH ×2 (08:38→21:12)
[2022-04-23] MEDS: FAMOTIDINE 20MG TABLET PO SCH ×2 (08:38→21:12)
[2022-04-23] MEDS: PHENOBARBITAL SODIUM 130MG/ML 1ML IV SCH (08:54)
[2022-04-23 09:19] LABS: BG BASE EXCESS -1.4 mmol/L (-2.0-2.0); BG CARBOXYHEMOGLOBIN 0.3 % (0.5-1.5); BG DEOXYHEMOGLOBIN 1.7 % (0.0-5.0); BG FRACTION INSPIRED OXYGEN 30; BG HCO3 ACT 22.7 mmol/L (22.0-26.0); BG METHEMOGLOBIN 0.3 % (0.0-1.5); BG OXYGEN SATURATION 98.3 % (92.0-98.5); BG OXYHEMOGLOBIN 97.7 % (94.0-97.0); BG PCO2 35.6 mmHg (35.0-45.0); BG PH 7.422 (7.350-7.450); BG PO2 140.3 mmHg (75.0-100.0); BG SAMPLE SITE RIGHT RADIAL; BG VENT MODE VENT - AC
[2022-04-23] MEDS ORDERED: VANCOMYCIN 1.25GM PMX (XELLIA) 250 ML IV NR (09:30)
[2022-04-23] MEDS ORDERED: MIDODRINE HCL 5MG TABLET PO SCH (10:15)
[2022-04-23 10:48] LABS: CREATINE KINASE 608 IU/L (26-192)
[2022-04-23] MEDS ORDERED: MAGNESIUM 2 G PREMIX 50 ML IV NR (11:00)
[2022-04-23] MEDS: ENOXAPARIN 40MG/0.4ML SYR SUBCUT SCH (11:25)
[2022-04-23] MEDS ORDERED: MIDODRINE HCL 5MG TABLET PO NR (11:30)
[2022-04-23] MEDS: MIDAZOLAM HCL 100 MG in SODIUM CHLORIDE 0.9% 80 ML IV PRN ×2 (13:04→21:14)
[2022-04-23] MEDS: DEXTROSE 50% WATER 50ML SYRINGE IV PRN ×2 (13:30→21:15)
[2022-04-23] MEDS ORDERED: KETAMINE HCL 50 MG/ML 10ML IV PRN (22:15)
[2022-04-23] MEDS ORDERED: KETAMINE HCL 50 MG/ML 10ML IV SCH (22:15)
[2022-04-23] MEDS: VALPROATE SODIUM 500 MG in SODIUM CHLORIDE 0.9% 100 ML IV SCH (23:41)
[2022-04-24] VITALS (61 sets, daily range): BP systolic 99–147; BP diastolic 67–95
[2022-04-24] MEDS: VANCOMYCIN 1G PREMIX 200 ML IV SCH ×2 (01:22→18:20)
[2022-04-24] MEDS: MIDAZOLAM HCL 100 MG in SODIUM CHLORIDE 0.9% 80 ML IV PRN ×4 (01:22→23:27)
[2022-04-24] MEDS ORDERED: IBUP-2028 PO (02:31)
[2022-04-24] MEDS ORDERED: LEVE1000 PO (02:31)
[2022-04-24] MEDS ORDERED: MOM PO (02:31)
[2022-04-24] MEDS ORDERED: LORA-250 PO (02:31)
[2022-04-24] MEDS ORDERED: LAMO100T65 PO (02:31)
[2022-04-24] MEDS ORDERED: LACO200T2 PO (02:31)
[2022-04-24] MEDS ORDERED: [UNRECOGNIZED DRUG - CODE] IM (02:31)
[2022-04-24] MEDS ORDERED: FOLI-43 PO (02:31)
[2022-04-24] MEDS ORDERED: TOPUD PO (02:31)
[2022-04-24] MEDS ORDERED: PHEN32.46 MT ×2 (02:42)
[2022-04-24] MEDS ORDERED: milk of magnesia (02:42)
[2022-04-24] MEDS ORDERED: POLY17PO43 MT (02:42)
[2022-04-24] MEDS ORDERED: SIMV-43 MT (02:42)
[2022-04-24] MEDS ORDERED: SENN-257 MT (02:42)
[2022-04-24] MEDS ORDERED: vitamin d3 PO (02:42)
[2022-04-24] MEDS ORDERED: OMEP20CA14 MT (02:42)
[2022-04-24] MEDS ORDERED: TIAG4TAB32 MT (02:42)
[2022-04-24] MEDS ORDERED: RISP1 MT (02:42)
[2022-04-24] MEDS ORDERED: MIDA5SPR (02:42)
[2022-04-24] MEDS: DEXT 5%/0.9% NACL 1,000 ML IV SCH ×3 (03:07→17:03)
[2022-04-24 04:44] LABS: CHLORIDE 112 mEq/L (98-107)
[2022-04-24 04:46] LABS: BASOPHILS % 0.1 % (0.0-2.0); HEMOGLOBIN. 10.9 g/dL (12.0-16.0); LYMPHOCYTES % 22.4 % (20.0-50.0); MEAN CORPUSCULAR HEMOGLOBIN 27.8 pg (28.0-32.0); MEAN CORPUSCULAR VOLUME 83.9 fL (81.0-99.0); MEAN PLATELET VOLUME 9.1 fl (7.4-10.4); MONOCYTES % 6.6 % (2.0-8.0); NEUTROPHILS % 70.9 % (40.0-76.0); PLATELET 125 x1000/uL (130-400); RED BLOOD CELL COUNT 3.94 mill/uL (4.2-5.4); RED CELL DISTRIBUTION WIDTH 14.3 % (11.6-14.6)
[2022-04-24 04:52] LABS: PHOSPHORUS 2.1 mg/dL (2.5-4.9)
[2022-04-24] MEDS: PHENYTOIN SODIUM 100MG/2ML VIAL IV SCH ×3 (05:23→21:10)
[2022-04-24] MEDS: PIPERACILLIN/TAZOBACTAM 3.375 G in DEXTROSE 5% WATER 50 ML IV SCH ×3 (05:23→21:11)
[2022-04-24] MEDS: BLOOD SUGAR DIAGNOSTIC STRIP TEST SCH ×4 (08:42→23:26)
[2022-04-24] MEDS: LAMOTRIGINE 100MG TABLET PO SCH ×2 (08:43→21:10)
[2022-04-24] MEDS: FAMOTIDINE 20MG TABLET PO SCH ×2 (08:43→21:10)
[2022-04-24] MEDS: ASPIRIN 325MG EC TABLET PO SCH (08:45)
[2022-04-24 08:51] LABS: BG BASE EXCESS -0.4 mmol/L (-2.0-2.0); BG CARBOXYHEMOGLOBIN 0.3 % (0.5-1.5); BG DEOXYHEMOGLOBIN 7.1 % (0.0-5.0); BG FRACTION INSPIRED OXYGEN 30; BG HCO3 ACT 22.5 mmol/L (22.0-26.0); BG METHEMOGLOBIN 0.2 % (0.0-1.5); BG OXYGEN SATURATION 92.9 % (92.0-98.5); BG OXYHEMOGLOBIN 92.4 % (94.0-97.0); BG PCO2 30.9 mmHg (35.0-45.0); BG PO2 64.9 mmHg (75.0-100.0); BG SAMPLE SITE RIGHT BRACHIAL; BG VENT MODE VENT - AC
[2022-04-24] MEDS: PHENOBARBITAL SODIUM 130MG/ML 1ML IV SCH (08:53)
[2022-04-24] MEDS ORDERED: POTASSIUM PHOS,M-BASIC-D-BASIC 20 MMOL in DEXT 5% WATER 243.3333 ML IV NR (09:30)
[2022-04-24] MEDS: LEVETIRACETAM 1,500 MG in SODIUM CHLORIDE 0.9% 100 ML IV SCH ×2 (09:49→21:10)
[2022-04-24] MEDS: VALPROATE SODIUM 500 MG in SODIUM CHLORIDE 0.9% 100 ML IV SCH ×2 (09:49→21:10)
[2022-04-24] MEDS: ENOXAPARIN 40MG/0.4ML SYR SUBCUT SCH (10:04)
[2022-04-25] VITALS (47 sets, daily range): BP systolic 108–154; BP diastolic 73–102
[2022-04-25] MEDS: DEXT 5%/0.9% NACL 1,000 ML IV SCH (01:01)
[2022-04-25 05:26] LABS: BASOPHILS % 0.1 % (0.0-2.0); HEMATOCRIT. 32.5 % (36.0-48.0); LYMPHOCYTES % 41.3 % (20.0-50.0); MEAN CORPUSCULAR HEMOGLOBIN 28.1 pg (28.0-32.0); MEAN CORPUSCULAR VOLUME 83.2 fL (81.0-99.0); MEAN PLATELET VOLUME 8.8 fl (7.4-10.4); MONOCYTES % 8.8 % (2.0-8.0); NEUTROPHILS % 49.8 % (40.0-76.0); PLATELET 125 x1000/uL (130-400); RED BLOOD CELL COUNT 3.91 mill/uL (4.2-5.4); RED CELL DISTRIBUTION WIDTH 14.6 % (11.6-14.6)
[2022-04-25 05:34] LABS: CHLORIDE 118 mEq/L (98-107)
[2022-04-25] MEDS: BLOOD SUGAR DIAGNOSTIC STRIP TEST SCH ×3 (05:48→17:12)
[2022-04-25] MEDS: PIPERACILLIN/TAZOBACTAM 3.375 G in DEXTROSE 5% WATER 50 ML IV SCH ×3 (05:48→21:20)
[2022-04-25] MEDS: PHENYTOIN SODIUM 100MG/2ML VIAL IV SCH ×3 (05:48→21:19)
[2022-04-25 05:58] LABS: PHOSPHORUS 2.8 mg/dL (2.5-4.9)
[2022-04-25] MEDS: MIDAZOLAM HCL 100 MG in SODIUM CHLORIDE 0.9% 80 ML IV PRN ×3 (06:14→20:54)
[2022-04-25] MEDS ORDERED: POTASSIUM CHLORIDE 20MEQ/PACKET PO NR (07:15)
[2022-04-25 08:31] LABS: BG BASE EXCESS -1.7 mmol/L (-2.0-2.0); BG CARBOXYHEMOGLOBIN 0.3 % (0.5-1.5); BG FRACTION INSPIRED OXYGEN 30; BG HCO3 ACT 20.5 mmol/L (22.0-26.0); BG METHEMOGLOBIN 0.3 % (0.0-1.5); BG OXYHEMOGLOBIN 97.4 % (94.0-97.0); BG PCO2 27.1 mmHg (35.0-45.0); BG PH 7.496 (7.350-7.450); BG PO2 117.2 mmHg (75.0-100.0); BG SAMPLE SITE LEFT RADIAL; BG TOTAL HEMOGLOBIN 11.3 g/dL (12.0-18.0); BG TOTAL RESPIRATORY RATE 16 b/min; BG VENT MODE VENT - AC
[2022-04-25] MEDS: VALPROATE SODIUM 500 MG in SODIUM CHLORIDE 0.9% 100 ML IV SCH ×2 (08:45→21:18)
[2022-04-25] MEDS: LEVETIRACETAM 1,500 MG in SODIUM CHLORIDE 0.9% 100 ML IV SCH ×2 (08:46→21:19)
[2022-04-25] MEDS: PHENOBARBITAL SODIUM 130MG/ML 1ML IV SCH (08:46)
[2022-04-25] MEDS: LAMOTRIGINE 100MG TABLET PO SCH ×2 (08:46→21:19)
[2022-04-25] MEDS: FAMOTIDINE 20MG TABLET PO SCH ×2 (08:46→21:19)
[2022-04-25] MEDS: ASPIRIN 325MG TABLET NG SCH (08:52)
[2022-04-25] MEDS: DEXT 5%/0.45% NACL 1000ML 1,000 ML IV SCH ×3 (08:52→23:57)
[2022-04-25] MEDS: ENOXAPARIN 40MG/0.4ML SYR SUBCUT SCH (11:51)
[2022-04-25] MEDS: VANCOMYCIN 1G PREMIX 200 ML IV SCH (11:51)
[2022-04-26] VITALS (47 sets, daily range): BP systolic 98–134; BP diastolic 62–93
[2022-04-26] MEDS: MIDAZOLAM HCL 100 MG in SODIUM CHLORIDE 0.9% 80 ML IV PRN ×2 (03:17→10:43)
[2022-04-26] MEDS: PHENYTOIN SODIUM 100MG/2ML VIAL IV SCH ×3 (05:35→21:38)
[2022-04-26] MEDS: VANCOMYCIN 1G PREMIX 200 ML IV SCH (05:35)
[2022-04-26] MEDS: PIPERACILLIN/TAZOBACTAM 3.375 G in DEXTROSE 5% WATER 50 ML IV SCH ×3 (05:36→21:38)
[2022-04-26 06:05] LABS: BASOPHILS % 0.1 % (0.0-2.0); HEMATOCRIT. 31.9 % (36.0-48.0); HEMOGLOBIN. 10.8 g/dL (12.0-16.0); LYMPHOCYTES % 35.9 % (20.0-50.0); MEAN CORPUSCULAR HEMOGLOBIN 28.1 pg (28.0-32.0); MEAN CORPUSCULAR VOLUME 83.2 fL (81.0-99.0); MEAN PLATELET VOLUME 9.4 fl (7.4-10.4); PLATELET 151 x1000/uL (130-400); RED BLOOD CELL COUNT 3.84 mill/uL (4.2-5.4); RED CELL DISTRIBUTION WIDTH 14.6 % (11.6-14.6)
[2022-04-26 06:17] LABS: CHLORIDE 115 mEq/L (98-107)
[2022-04-26 06:25] LABS: PHOSPHORUS 2.9 mg/dL (2.5-4.9)
[2022-04-26] MEDS: DEXT 5%/0.45% NACL 1000ML 1,000 ML IV SCH ×3 (07:20→21:14)
[2022-04-26] MEDS: ASPIRIN 325MG TABLET NG SCH (09:36)
[2022-04-26] MEDS: LEVETIRACETAM 1,500 MG in SODIUM CHLORIDE 0.9% 100 ML IV SCH ×2 (09:36→21:14)
[2022-04-26] MEDS: FAMOTIDINE 20MG TABLET PO SCH ×2 (09:36→21:22)
[2022-04-26] MEDS: LAMOTRIGINE 100MG TABLET PO SCH ×2 (09:36→21:22)
[2022-04-26] MEDS: VALPROATE SODIUM 500 MG in SODIUM CHLORIDE 0.9% 100 ML IV SCH ×2 (09:36→21:38)
[2022-04-26] MEDS: PHENOBARBITAL SODIUM 130MG/ML 1ML IV SCH (09:37)
[2022-04-26] MEDS: DOCUSATE SODIUM 100MG CAPSULE PO PRN (09:40)
[2022-04-26] MEDS: ENOXAPARIN 40MG/0.4ML SYR SUBCUT SCH (10:44)
[2022-04-26] MEDS ORDERED: MAGNESIUM 4 G PREMIX 100 ML IV NR (16:00)
[2022-04-27] VITALS (33 sets, daily range): BP systolic 104–136; BP diastolic 62–99
[2022-04-27] MEDS: VANCOMYCIN 1G PREMIX 200 ML IV SCH ×2 (00:03→17:21)
[2022-04-27 05:55] LABS: HEMATOCRIT 34.2 % (36.0-48.0); HEMOGLOBIN 11.3 g/dL (12.0-16.0); MEAN CORPUSCULAR HEMOGLOBIN 27.9 pg (28.0-32.0); MEAN CORPUSCULAR VOLUME 84.1 fL (81.0-99.0); PLATELET 156 x1000/uL (130-400); RED BLOOD CELL COUNT 4.07 mill/uL (4.2-5.4); RED CELL DISTRIBUTION WIDTH 14.6 % (11.6-14.6)
[2022-04-27 06:05] LABS: CHLORIDE 112 mEq/L (98-107)
[2022-04-27] MEDS: PHENYTOIN SODIUM 100MG/2ML VIAL IV SCH ×3 (06:06→21:14)
[2022-04-27] MEDS: PIPERACILLIN/TAZOBACTAM 3.375 G in DEXTROSE 5% WATER 50 ML IV SCH (06:06)
[2022-04-27 06:29] LABS: PHOSPHORUS 3.1 mg/dL (2.5-4.9)
[2022-04-27] MEDS: DEXT 5%/0.45% NACL 1000ML 1,000 ML IV SCH ×3 (07:07→23:23)
[2022-04-27 08:34] LABS: BG BASE EXCESS -2.3 mmol/L (-2.0-2.0); BG CARBOXYHEMOGLOBIN 0.4 % (0.5-1.5); BG DEOXYHEMOGLOBIN 2.3 % (0.0-5.0); BG FRACTION INSPIRED OXYGEN 30; BG HCO3 ACT 21.5 mmol/L (22.0-26.0); BG METHEMOGLOBIN 0.2 % (0.0-1.5); BG OXYGEN SATURATION 97.7 % (92.0-98.5); BG OXYHEMOGLOBIN 97.1 % (94.0-97.0); BG PCO2 34.1 mmHg (35.0-45.0); BG PH 7.417 (7.350-7.450); BG PO2 107.5 mmHg (75.0-100.0); BG SAMPLE SITE LEFT RADIAL; BG TOTAL HEMOGLOBIN 13.2 g/dL (12.0-18.0); BG VENT MODE VENT - AC
[2022-04-27] MEDS: FAMOTIDINE 20MG TABLET PO SCH ×2 (08:36→21:15)
[2022-04-27] MEDS: ASPIRIN 325MG TABLET NG SCH (08:36)
[2022-04-27] MEDS: PHENOBARBITAL SODIUM 130MG/ML 1ML IV SCH (08:36)
[2022-04-27] MEDS: LAMOTRIGINE 100MG TABLET PO SCH ×2 (08:36→21:13)
[2022-04-27] MEDS: VALPROATE SODIUM 500 MG in SODIUM CHLORIDE 0.9% 100 ML IV SCH ×2 (08:55→21:12)
[2022-04-27] MEDS: LEVETIRACETAM 1,500 MG in SODIUM CHLORIDE 0.9% 100 ML IV SCH ×2 (08:55→21:13)
[2022-04-27] MEDS: ENOXAPARIN 40MG/0.4ML SYR SUBCUT SCH (10:09)
[2022-04-27 13:52] LABS: BG BASE EXCESS -0.4 mmol/L (-2.0-2.0); BG CARBOXYHEMOGLOBIN 0.3 % (0.5-1.5); BG DEOXYHEMOGLOBIN 1.7 % (0.0-5.0); BG FRACTION INSPIRED OXYGEN 40; BG HCO3 ACT 23.4 mmol/L (22.0-26.0); BG METHEMOGLOBIN 0.3 % (0.0-1.5); BG OXYGEN SATURATION 98.3 % (92.0-98.5); BG OXYHEMOGLOBIN 97.7 % (94.0-97.0); BG PCO2 35.6 mmHg (35.0-45.0); BG PH 7.436 (7.350-7.450); BG PO2 142.9 mmHg (75.0-100.0); BG SAMPLE SITE LEFT RADIAL; BG TOTAL HEMOGLOBIN 11.5 g/dL (12.0-18.0); BG VENT MODE VENT - CPAP
[2022-04-27 16:46] LABS: BG BASE EXCESS 0.9 mmol/L (-2.0-2.0); BG CARBOXYHEMOGLOBIN 0.3 % (0.5-1.5); BG DEOXYHEMOGLOBIN 1.2 % (0.0-5.0); BG FRACTION INSPIRED OXYGEN 98; BG HCO3 ACT 24.7 mmol/L (22.0-26.0); BG METHEMOGLOBIN 0.2 % (0.0-1.5); BG OXYGEN SATURATION 98.8 % (92.0-98.5); BG OXYHEMOGLOBIN 98.3 % (94.0-97.0); BG PCO2 36.7 mmHg (35.0-45.0); BG PH 7.446 (7.350-7.450); BG PO2 151.6 mmHg (75.0-100.0); BG SAMPLE SITE RIGHT RADIAL; BG TOTAL HEMOGLOBIN 12.1 g/dL (12.0-18.0); BG VENT MODE COOL AEROSOL
[2022-04-27] MEDS ORDERED: RACEPINEPHRINE 2.25% 0.5ML NEB VIAL HHN ONE (17:00)
[2022-04-27] MEDS ORDERED: METHYLPREDNISOLONE SOD SUCC 125 MG/2 ML VIAL IV NR (17:00)
[2022-04-27] MEDS ORDERED: KETOROLAC 15MG/ML VIAL IV SCH (17:00)
[2022-04-27] MEDS: METHYLPREDNISOLONE SOD SUCC 125 MG/2 ML VIAL IV SCH ×2 (21:14→23:39)
[2022-04-27] MEDS: RACEPINEPHRINE 2.25% 0.5ML NEB VIAL HHN PRN (21:55)
[2022-04-28] VITALS (24 sets, daily range): BP systolic 90–136; BP diastolic 46–90
[2022-04-28] MEDS: DOCUSATE SODIUM 100MG CAPSULE PO PRN (04:00)
[2022-04-28] MEDS: RACEPINEPHRINE 2.25% 0.5ML NEB VIAL HHN PRN (04:42)
[2022-04-28] MEDS: METHYLPREDNISOLONE SOD SUCC 125 MG/2 ML VIAL IV SCH ×4 (05:32→23:16)
[2022-04-28] MEDS: PHENYTOIN SODIUM 100MG/2ML VIAL IV SCH ×3 (05:32→22:40)
[2022-04-28 06:00] LABS: HEMATOCRIT 36.2 % (36.0-48.0); HEMOGLOBIN 12.1 g/dL (12.0-16.0); MEAN CORPUSCULAR VOLUME 83.5 fL (81.0-99.0); PLATELET 178 x1000/uL (130-400); RED BLOOD CELL COUNT 4.33 mill/uL (4.2-5.4); RED CELL DISTRIBUTION WIDTH 14.5 % (11.6-14.6)
[2022-04-28 06:08] LABS: CHLORIDE 110 mEq/L (98-107)
[2022-04-28 06:26] LABS: PHOSPHORUS 3.6 mg/dL (2.5-4.9)
[2022-04-28] MEDS: ASPIRIN 325MG TABLET NG SCH (08:33)
[2022-04-28] MEDS: FAMOTIDINE 20MG TABLET PO SCH ×2 (08:33→21:33)
[2022-04-28] MEDS: LEVETIRACETAM 1,500 MG in SODIUM CHLORIDE 0.9% 100 ML IV SCH ×2 (08:33→21:33)
[2022-04-28] MEDS: LAMOTRIGINE 100MG TABLET PO SCH ×2 (08:33→21:33)
[2022-04-28] MEDS: VALPROATE SODIUM 500 MG in SODIUM CHLORIDE 0.9% 100 ML IV SCH ×2 (08:33→21:32)
[2022-04-28] MEDS: PHENOBARBITAL SODIUM 130MG/ML 1ML IV SCH (08:34)
[2022-04-28] MEDS: PHENOBARBITAL SODIUM 65MG/ML 1ML IV SCH (11:05)
[2022-04-28] MEDS: ENOXAPARIN 40MG/0.4ML SYR SUBCUT SCH (11:13)
[2022-04-28] MEDS ORDERED: VANCOMYCIN 1,000 MG in DEXT 5% WATER 250 ML IV SCH (12:00)
[2022-04-28] MEDS: DEXT 5%/0.45% NACL 1000ML 1,000 ML IV SCH ×3 (15:45→23:16)
[2022-04-28] MEDS: ENOXAPARIN 30MG/0.3ML SYR SUBCUT SCH (21:34)
[2022-04-29] VITALS (18 sets, daily range): BP systolic 89–133; BP diastolic 37–84
[2022-04-29] MEDS: PHENYTOIN SODIUM 100MG/2ML VIAL IV SCH ×3 (05:58→21:46)
[2022-04-29] MEDS: METHYLPREDNISOLONE SOD SUCC 125 MG/2 ML VIAL IV SCH (05:58)
[2022-04-29] MEDS: DEXT 5%/0.45% NACL 1000ML 1,000 ML IV SCH ×2 (06:49→15:37)
[2022-04-29] MEDS: LEVETIRACETAM 1,500 MG in SODIUM CHLORIDE 0.9% 100 ML IV SCH ×2 (08:27→20:55)
[2022-04-29] MEDS: ASPIRIN 325MG TABLET NG SCH (08:28)
[2022-04-29] MEDS: LAMOTRIGINE 100MG TABLET PO SCH ×2 (08:28→20:55)
[2022-04-29] MEDS: FAMOTIDINE 20MG TABLET PO SCH ×2 (08:28→20:56)
[2022-04-29] MEDS: VALPROATE SODIUM 500 MG in SODIUM CHLORIDE 0.9% 100 ML IV SCH ×2 (08:28→20:55)
[2022-04-29] MEDS: PHENOBARBITAL SODIUM 65MG/ML 1ML IV SCH (08:30)
[2022-04-29] MEDS: ENOXAPARIN 30MG/0.3ML SYR SUBCUT SCH ×2 (08:31→20:56)
[2022-04-29] MEDS: METHYLPREDNISOLONE SOD SUCC 40 MG/ML VIAL IV SCH ×2 (14:24→23:15)
[2022-04-29] MEDS: LACTULOSE 20G/30ML UDC PO SCH (16:59)
[2022-04-30] VITALS (15 sets, daily range): BP systolic 88–120; BP diastolic 59–78
[2022-04-30] MEDS: DEXT 5%/0.45% NACL 1000ML 1,000 ML IV SCH ×3 (00:33→15:39)
[2022-04-30 05:53] LABS: CHLORIDE 110 mEq/L (98-107)
[2022-04-30 05:55] LABS: HEMATOCRIT 36.1 % (36.0-48.0); HEMOGLOBIN 11.8 g/dL (12.0-16.0); MEAN CORPUSCULAR HEMOGLOBIN 27.8 pg (28.0-32.0); MEAN CORPUSCULAR VOLUME 84.5 fL (81.0-99.0); PLATELET 203 x1000/uL (130-400); RED BLOOD CELL COUNT 4.27 mill/uL (4.2-5.4); RED CELL DISTRIBUTION WIDTH 14.4 % (11.6-14.6)
[2022-04-30 05:57] LABS: PHOSPHORUS 3.3 mg/dL (2.5-4.9)
[2022-04-30] MEDS: PHENYTOIN SODIUM 100MG/2ML VIAL IV SCH ×3 (06:48→22:11)
[2022-04-30] MEDS: ENOXAPARIN 30MG/0.3ML SYR SUBCUT SCH ×2 (08:24→22:06)
[2022-04-30] MEDS: FAMOTIDINE 20MG TABLET PO SCH ×2 (08:24→22:11)
[2022-04-30] MEDS: PHENOBARBITAL SODIUM 65MG/ML 1ML IV SCH (08:24)
[2022-04-30] MEDS: METHYLPREDNISOLONE SOD SUCC 40 MG/ML VIAL IV SCH (08:24)
[2022-04-30] MEDS: LACTULOSE 20G/30ML UDC PO SCH ×2 (08:24→17:26)
[2022-04-30] MEDS: LAMOTRIGINE 100MG TABLET PO SCH ×2 (08:24→22:03)
[2022-04-30] MEDS: ASPIRIN 325MG TABLET NG SCH (08:24)
[2022-04-30] MEDS: LEVETIRACETAM 1,500 MG in SODIUM CHLORIDE 0.9% 100 ML IV SCH ×2 (08:25→22:03)
[2022-04-30] MEDS: VALPROATE SODIUM 500 MG in SODIUM CHLORIDE 0.9% 100 ML IV SCH ×2 (08:25→22:03)
[2022-05-01] VITALS: BP 102/73
[2022-05-01] MEDS: PHENYTOIN SODIUM 100MG/2ML VIAL IV SCH ×3 (06:28→23:13)
[2022-05-01 06:37] LABS: HEMATOCRIT 38.7 % (36.0-48.0); HEMOGLOBIN 12.7 g/dL (12.0-16.0); MEAN CORPUSCULAR HEMOGLOBIN 27.6 pg (28.0-32.0); MEAN CORPUSCULAR VOLUME 84.3 fL (81.0-99.0); PLATELET 244 x1000/uL (130-400); RED BLOOD CELL COUNT 4.59 mill/uL (4.2-5.4); RED CELL DISTRIBUTION WIDTH 14.6 % (11.6-14.6)
[2022-05-01 07:42] LABS: CHLORIDE 108 mEq/L (98-107)
[2022-05-01] MEDS: DEXT 5%/0.45% NACL 1000ML 1,000 ML IV SCH ×4 (07:45→23:32)
[2022-05-01 08:00] VITALS: BP 108/74
[2022-05-01] MEDS ORDERED: PHENOBARBITAL IV SCH (09:00)
[2022-05-01] MEDS ORDERED: METHYLPREDNISOLONE SOD SUCC 40 MG/ML VIAL IV SCH (09:00)
[2022-05-01] MEDS: LEVETIRACETAM 1,500 MG in SODIUM CHLORIDE 0.9% 100 ML IV SCH ×2 (09:00→22:12)
[2022-05-01] MEDS: VALPROATE SODIUM 500 MG in SODIUM CHLORIDE 0.9% 100 ML IV SCH ×2 (09:00→22:19)
[2022-05-01] MEDS ORDERED: SODIUM CHLORIDE 0.9% IV SCH (09:00)
[2022-05-01] MEDS: LACTULOSE 20G/30ML UDC PO SCH ×2 (09:18→16:48)
[2022-05-01] MEDS: ASPIRIN 325MG TABLET NG SCH (09:18)
[2022-05-01] MEDS: FAMOTIDINE 20MG TABLET PO SCH ×2 (09:19→22:13)
[2022-05-01] MEDS: ENOXAPARIN 30MG/0.3ML SYR SUBCUT SCH ×2 (09:19→22:13)
[2022-05-01] MEDS: LAMOTRIGINE 100MG TABLET PO SCH ×2 (09:19→22:13)
[2022-05-01] MEDS: PHENOBARBITAL SODIUM 65MG/ML 1ML IV SCH (09:19)
[2022-05-01 12:00] VITALS: BP 114/78
[2022-05-01 16:00] VITALS: BP 114/78
[2022-05-01 22:00] VITALS: BP 120/57
[2022-05-02] VITALS (10 sets, daily range): BP systolic 107–147; BP diastolic 65–89
[2022-05-02] MEDS: PHENYTOIN SODIUM 100MG/2ML VIAL IV SCH ×3 (05:14→21:23)
[2022-05-02] MEDS ORDERED: PREDNISONE 20MG TABLET PO SCH (09:00)
[2022-05-02] MEDS: LACTULOSE 20G/30ML UDC PO SCH ×2 (09:23→16:21)
[2022-05-02] MEDS: FAMOTIDINE 20MG TABLET PO SCH ×2 (09:24→21:23)
[2022-05-02] MEDS: ASPIRIN 325MG TABLET NG SCH (09:24)
[2022-05-02] MEDS: ENOXAPARIN 30MG/0.3ML SYR SUBCUT SCH ×2 (09:24→21:21)
[2022-05-02] MEDS: LAMOTRIGINE 100MG TABLET PO SCH ×2 (09:24→21:21)
[2022-05-02] MEDS: DEXT 5%/0.45% NACL 1000ML 1,000 ML IV SCH (09:25)
[2022-05-02] MEDS: VALPROATE SODIUM 500 MG in SODIUM CHLORIDE 0.9% 100 ML IV SCH (09:25)
[2022-05-02] MEDS: LEVETIRACETAM 1,500 MG in SODIUM CHLORIDE 0.9% 100 ML IV SCH (10:44)
[2022-05-02] MEDS: PHENOBARBITAL SODIUM 65MG/ML 1ML IV SCH (10:44)
[2022-05-02 12:51] LABS: HEMATOCRIT 32.2 % (36.0-48.0); HEMOGLOBIN 10.7 g/dL (12.0-16.0); MEAN CORPUSCULAR HEMOGLOBIN 27.8 pg (28.0-32.0); MEAN CORPUSCULAR VOLUME 83.9 fL (81.0-99.0); PLATELET 253 x1000/uL (130-400); RED BLOOD CELL COUNT 3.84 mill/uL (4.2-5.4); RED CELL DISTRIBUTION WIDTH 14.3 % (11.6-14.6)
[2022-05-02 14:27] LABS: CHLORIDE 107 mEq/L (98-107)
[2022-05-02] MEDS: VALPROATE SODIUM 250MG/5ML UDC PO SCH (21:22)
[2022-05-02] MEDS: LEVETIRACETAM 500MG TABLET PO SCH (21:22)
[2022-05-03 00:08] VITALS: BP 132/86
[2022-05-03 04:00] VITALS: BP 128/80
[2022-05-03] MEDS: PHENYTOIN SODIUM 100MG/2ML VIAL IV SCH (06:22)
[2022-05-03 07:26] LABS: HEMATOCRIT 34.4 % (36.0-48.0); HEMOGLOBIN 11.3 g/dL (12.0-16.0); MEAN CORPUSCULAR HEMOGLOBIN 27.7 pg (28.0-32.0); MEAN CORPUSCULAR VOLUME 84.1 fL (81.0-99.0); PLATELET 272 x1000/uL (130-400); RED BLOOD CELL COUNT 4.09 mill/uL (4.2-5.4); RED CELL DISTRIBUTION WIDTH 14.1 % (11.6-14.6)
[2022-05-03 08:00] VITALS: BP 157/99
[2022-05-03] MEDS: LACTULOSE 20G/30ML UDC PO SCH ×2 (08:07→16:53)
[2022-05-03] MEDS: VALPROATE SODIUM 250MG/5ML UDC PO SCH ×2 (08:07→20:03)
[2022-05-03] MEDS: ASPIRIN 325MG TABLET NG SCH (08:07)
[2022-05-03] MEDS: LEVETIRACETAM 500MG TABLET PO SCH ×2 (08:07→20:03)
[2022-05-03] MEDS: FAMOTIDINE 20MG TABLET PO SCH ×2 (08:07→20:02)
[2022-05-03] MEDS: ENOXAPARIN 30MG/0.3ML SYR SUBCUT SCH ×2 (08:07→20:03)
[2022-05-03] MEDS: LAMOTRIGINE 100MG TABLET PO SCH ×2 (08:08→20:03)
[2022-05-03] MEDS ORDERED: PHENOBARBITAL 30 MG TABLET PO SCH (09:00)
[2022-05-03 10:40] LABS: CHLORIDE 105 mEq/L (98-107)
[2022-05-03 10:59] LABS: PHOSPHORUS 3.6 mg/dL (2.5-4.9)
[2022-05-03 12:00] VITALS: BP 141/92
[2022-05-03] MEDS ORDERED: PHENYTOIN SODIUM EXTENDED 100MG CAPSULE PO SCH ×2 (14:00)
[2022-05-03] MEDS: PHENYTOIN 100 MG/4 ML UDC PO SCH ×2 (15:00→21:27)
[2022-05-03 16:00] VITALS: BP 122/81
[2022-05-03 20:00] VITALS: BP 140/90
[2022-05-04] VITALS (7 sets, daily range): BP systolic 105–125; BP diastolic 63–81
[2022-05-04] MEDS: PHENYTOIN 100 MG/4 ML UDC PO SCH ×3 (05:10→22:00)
[2022-05-04] MEDS: ENOXAPARIN 30MG/0.3ML SYR SUBCUT SCH ×2 (08:02→22:02)
[2022-05-04] MEDS: LACTULOSE 20G/30ML UDC PO SCH ×2 (08:03→16:38)
[2022-05-04] MEDS: LEVETIRACETAM 500MG TABLET PO SCH ×2 (08:03→22:01)
[2022-05-04] MEDS: LAMOTRIGINE 100MG TABLET PO SCH ×2 (08:03→22:02)
[2022-05-04] MEDS: ASPIRIN 325MG TABLET NG SCH (08:03)
[2022-05-04] MEDS: VALPROATE SODIUM 250MG/5ML UDC PO SCH ×2 (08:03→22:01)
[2022-05-04] MEDS: FAMOTIDINE 20MG TABLET PO SCH ×2 (08:05→22:01)
[2022-05-05] VITALS: BP 122/53
[2022-05-05 04:00] VITALS: BP 123/81
[2022-05-05 04:28] VITALS: BP 113/72
[2022-05-05 05:20] VITALS: BP 120/75
[2022-05-05] MEDS: PHENYTOIN 100 MG/4 ML UDC PO SCH (07:10)
[2022-05-05 08:00] VITALS: BP 119/75
[2022-05-05] MEDS: ENOXAPARIN 30MG/0.3ML SYR SUBCUT SCH (09:28)
[2022-05-05] MEDS: VALPROATE SODIUM 250MG/5ML UDC PO SCH (09:29)
[2022-05-05] MEDS: ASPIRIN 325MG TABLET NG SCH (09:29)
[2022-05-05] MEDS: LACTULOSE 20G/30ML UDC PO SCH (09:29)
[2022-05-05] MEDS: FAMOTIDINE 20MG TABLET PO SCH (09:30)
[2022-05-05] MEDS: LEVETIRACETAM 500MG TABLET PO SCH (09:30)
[2022-05-05] MEDS: LAMOTRIGINE 100MG TABLET PO SCH (09:30)
[2022-05-05 12:00] VITALS: BP 122/68
[2022-05-06 15:10] LABS: LEVETIRACETAM / KEPPRA 52.7 ug/mL (10.0-40.0)
== END 2022-05-05 15:30 | DRG 207 ==
LOC: ER 06:16 → 3WST 09:09 → SUPCPDRO 09:36 → ENRESERV 11:40 → CVICU 04-22 11:55 → UNDODISIN 04-28 17:30 → CVICU 04-29 14:00 → 5EST 04-30 15:17 → 3WST 05-01 09:53
PROVIDERS: ADMIT Internal Medicine; ATTEND Internal Medicine
PROC: 0BH17EZ Insertion of Endotracheal Airway into Trachea, Via Natural or Artificial Opening (ICD-10-PCS; principal; 2022-04-22)
PROC: 5A1955Z Respiratory Ventilation, Greater than 96 Consecutive Hours (ICD-10-PCS; 2022-04-22)
PROC: 02HV33Z Insertion of Infusion Device into Superior Vena Cava, Percutaneous Approach (ICD-10-PCS; 2022-04-22)
PROC: B548ZZA Ultrasonography of Superior Vena Cava, Guidance (ICD-10-PCS; 2022-04-22)
PROC: 4A00X4Z Measurement of Central Nervous Electrical Activity, External Approach (ICD-10-PCS; 2022-04-26)
PROC: 4A00X4Z Measurement of Central Nervous Electrical Activity, External Approach (ICD-10-PCS; 2022-04-27)
PROC: 4A00X4Z Measurement of Central Nervous Electrical Activity, External Approach (ICD-10-PCS; 2022-04-28)
DX: J96.01 Acute respiratory failure with hypoxia (principal); J69.0 Pneumonitis due to inhalation of food and vomit; G40.803 Other epilepsy, intractable, with status epilepticus; E44.0 Moderate protein-calorie malnutrition; E87.0 Hyperosmolality and hypernatremia; G80.9 Cerebral palsy, unspecified; I10 Essential (primary) hypertension; E83.39 Other disorders of phosphorus metabolism; H44.521 Atrophy of globe, right eye; J45.909 Unspecified asthma, uncomplicated; E83.42 Hypomagnesemia; E87.6 Hypokalemia; E16.2 Hypoglycemia, unspecified; D64.9 Anemia, unspecified; E78.00 Pure hypercholesterolemia, unspecified; K21.9 Gastro-esophageal reflux disease without esophagitis; M19.90 Unspecified osteoarthritis, unspecified site; I95.9 Hypotension, unspecified; R74.01 Elevation of levels of liver transaminase levels; Z68.35 Body mass index [BMI] 35.0-35.9, adult; Z79.899 Other long term (current) drug therapy; Z91.14 Patient's other noncompliance with medication regimen
CPT/HCPCS: 31500; 36415; 36573; 36600; 70551; 71045; 80048; 80053; 80165; 80184; 80185; 80202; 80320; 82375; 82542; 82550; 82607; 82805; 82962; 83605; 83735; 83916; 84100; 84145; 84439; 84443; 84478; 85025; 85027; 87070; 92610; 93005; 93970; 94002; 94003; 94640; 95816; 95822; 97110; 97162; 97166; 97530; 99285; C1725; J1165; J1650; J1885; J1953; J2060; J2250; J2405; J2543; J2560; J2704; J2920; J2930; J3370; J3475; J3490; J7042; J7050; J7060; J7512; G0480